=== PATIENT | female | born 2000 | race Caucasian/White ===

== ENCOUNTER → 2019-12-30 14:12 | Outpatient (BNVA) | payer MEDICAID, SELFPAY | PROVIDERS: Family Provider Family Medicine; PCP Family Medicine; Visit Provider Nurse Practitioner Psychiatric/Mental Health | DX: F43.12 Post-traumatic stress disorder, chronic (principal); F33.9 Major depressive disorder, recurrent, unspecified | CPT/HCPCS: 99214 ==

== ENCOUNTER 2020-01-09 15:36 | Emergency (ER) | payer MEDICAID, SELFPAY ==
[2020-01-09 15:50] VITALS: BP 121/81; PULSE 81; RESP 18; TEMP 37.3; O2SAT 98; BMI 31.8
[2020-01-09 15:56] VITALS: BP 110/71; PULSE 75; RESP 17; O2SAT 95
--- NOTE | 2020-01-09 16:07 | ED_ITS ---
HPI - Female Genitourinary General: Chief complaint: Urogenital-Female Stated complaint: lower abd pain Time Seen by Provider: 01/09/20 15:59 History of Present Illness: HPI Narrative: This patient is a 19-year-old female presenting with vaginal bleeding and cramping. She thinks she either is having a miscarriage or she has a ruptured ovarian cyst. She has irregular periods and has not had one in 4 months. She took a home test about a month ago and thought it might be a little bit positive. She start having some cramping last night and this morning started bleeding with clots. She otherwise feels fine. She has not been ill recently. She has had 2 normal pregnancies with no complications. MD elicited complaint: vaginal bleeding, possible miscarriage and delayed menses Quality of pain: cramping Consistency: constant Vaginal discharge: none Vaginal bleeding: dark red and clots Associated symptoms: Reports vaginal bleeding; Deny abdominal pain, headache(s) or nausea Date of Last Menstrual Period: 08/24/19 Review of Systems General: Reports: 10 or more systems reviewed and unremarkable except in HPI and below Const: Denies: fever(s), chills, fatigue or malaise Eyes: Denies: change in vision ENMT: Denies: odynophagia Card: Denies: chest pain or swelling of feet/ankles Resp: Denies: dyspnea, productive cough or non-productive cough GI: Denies: abdominal pain, nausea or vomiting : Denies: flank pain or difficulty voiding Musc: Denies: neck pain or back pain Skin/Breast: Denies: rash Neuro: Denies: headache(s), numbness in extremities or weakness in extremities Armando/Lymph: Denies: easy bruising or easy bleeding PFSH ED PFSH: Medical History Major depressive disorder, recurrent Social History Current gender identity: Female Female Reproductive History: Date of last menstrual period: 08/24/19 Physical Exam Const: COMMON NORMALS: no acute distress, patient oriented x3, no limitations and alert GENERAL APPEARANCE: cooperative and comfortable HENMT: HEAD & SCALP: normal to inspection FACE & SINUS: normal facial exam Eye: GENERAL EYE: appearance normal, both eyes and all related structures Neck/C-Spine: COMMON NORMALS: supple, no meningeal signs and no JVD Chest: COMMONS NORMALS: normal inspection of the chest Resp: COMMON NORMALS: normal respiratory effort, No use of accessory muscles and clear to auscultation bilaterally AUSCULTATION: clear to auscultation bilaterally Cardio: COMMON NORMALS: no JVD, regular rate, regular rhythm and No murmurs present (Cardio) RATE: regular rate RHYTHM: regular rhythm GI: COMMON NORMALS: Normal to inspection, nondistended, normoactive bowel sounds present, Soft to palpation and non-tender INSPECTION: Yes normal to inspection AUSCULTATION: Yes normoactive bowel sounds PALPATION: Yes Soft to palpation : COMMON NORMALS: Yes normal external appearance, Yes normal appearance of the vagina, Yes normal appearance of the cervix and Yes normal bimanual exam SPECULUM EXAM - VAGINA: Yes vaginal bleeding Amount: medium/moderate BIMANUAL EXAM - VAGINA & UTERUS: Yes normal bimanual exam OB/EXTERNAL & SPECULUM: vaginal bleeding Back/Pelvis: COMMON NORMALS: thoracic and lumbar spine normal to inspection Extremity: COMMON NORMALS: normal to inspection Neuro: COMMON NORMALS: patient oriented x3, moves all extremities, no focal motor deficits and no sensory deficits noted SENSORIUM/ORIENTATION: Yes alert MENINGEAL SIGNS: Yes no meningeal signs Psych: COMMON NORMALS: mental status grossly normal, cooperative and normal affect Skin: COMMON NORMALS: no rashes or lesions noted and turgor normal GENERAL SKIN EXAM: no rashes or lesions noted and turgor normal Course ED course: Negative hCG. Patient is pretty comfortable other than menstrual cramping. Tylenol helped. I doubt clinically an ovarian torsion. No sign of infection on pelvic exam. She does have some bleeding but not anything significant at this time. She has had irregular periods and heavy bleeding at times in the past. She does not have an WALNUT DEHYDRATOR OPERATOR or primary care provider. I offered to write her for some control to try to regulate her periods as well as give her referral to WALNUT DEHYDRATOR OPERATOR. She was interested in both of those options. We will let her go home and she understands to return if any signs of worsening anemia, increased pain, fever. Vital Signs: Vital signs: Vital Signs Temperature 99.1 F 01/09/20 15:50 Pulse Rate 74 01/09/20 19:15 Respiratory Rate 18 07/24/20 19:15 Blood Pressure 123/81 01/09/20 19:15 Pulse Oximetry 96 01/09/20 19:15 MDM - Female Lab Data: Labs: Lab Results 01/09/20 01/09/20 01/09/20 Range/Units 16:22 16:22 16:22 WBC 11.4 (4.5-13.0) 10^3/ uL RBC 5.07 (4.1-5.3) 10^6/u L Hgb 13.3 (11.5-15.3) g/dL Hct 42.3 (37.0-47.0) % MCV 83.4 (81-99) fL MCH 26.2 L (28.0-34.0) pg MCHC 31.4 (30.0-36.0) g/dL RDW 13.2 (12.1-15.1) % Plt Count 335 (130-400) 10^3/c mm MPV 9.3 (7.4-10.4) fL Neut % (Auto) 69.5 % Lymph % (Auto) 20.9 % [place] % (Auto) 7.1 % Eos % (Auto) 1.8 % Baso % (Auto) 0.4 % Neut # (Auto) 7.93 (1.8-8.0) 10^3/u L Lymph # (Auto) 2.4 (1.5-6.5) 10^3/u L [place] # (Auto) 0.8 (0.2-0.9) 10^3/u L Eos # (Auto) 0.2 (0.0-0.8) 10^3/u L Baso # (Auto) 0.0 (0.0-0.1) 10^3/u L Nucleated RBC % (a uto) 0 % Nucleated RBCs # 0.0 /100WBC Sodium 136 (136-145) mmol/L Potassium 3.9 (3.5-5.1) mmol/L Chloride 102 (98-107) mmol/L Carbon Dioxide 25 (22-29) mmol/L Anion Gap 12.9 (5-19) BUN 9 (6-20) mg/dL Creatinine 0.6 (0.5-0.9) mg/dL GFR Calculation 127.5 (90-130) mL/min Glucose 102 (65-115) mg/dL Calculated Osmolal ity 278 L (285-295) mOsm/k g Calcium 9.5 (8.5-10.5) mg/dL Total Bilirubin 0.3 (0.15-1.2) mg/dL AST 14 (0-32) U/L ALT 18 (0-33) U/L Alkaline Phosphata se 153 H (35-105) IU/L Total Protein 7.6 (6.6-8.7) g/dL Albumin 4.4 (3.5-5.2) g/dL Globulin 3.2 (1.3-4.6) g/dL HCG, Qual Negative (Negative) Blood Type Rho(D) Type Antibody Screen 01/09/20 Range/Units 16:22 WBC (4.5-13.0) 10^3/ uL RBC (4.1-5.3) 10^6/u L Hgb (11.5-15.3) g/dL Hct (37.0-47.0) % MCV (81-99) fL MCH (28.0-34.0) pg MCHC (30.0-36.0) g/dL RDW (12.1-15.1) % Plt Count (130-400) 10^3/c mm MPV (7.4-10.4) fL Neut % (Auto) % Lymph % (Auto) % [place] % (Auto) % Eos % (Auto) % Baso % (Auto) % Neut # (Auto) (1.8-8.0) 10^3/u L Lymph # (Auto) (1.5-6.5) 10^3/u L [place] # (Auto) (0.2-0.9) 10^3/u L Eos # (Auto) (0.0-0.8) 10^3/u L Baso # (Auto) (0.0-0.1) 10^3/u L Nucleated RBC % (a uto) % Nucleated RBCs # /100WBC Sodium (136-145) mmol/L Potassium (3.5-5.1) mmol/L Chloride (98-107) mmol/L Carbon Dioxide (22-29) mmol/L Anion Gap (5-19) BUN (6-20) mg/dL Creatinine (0.5-0.9) mg/dL GFR Calculation (90-130) mL/min Glucose (65-115) mg/dL Calculated Osmolal ity (285-295) mOsm/k g Calcium (8.5-10.5) mg/dL Total Bilirubin (0.15-1.2) mg/dL AST (0-32) U/L ALT (0-33) U/L Alkaline Phosphata se (35-105) IU/L Total Protein (6.6-8.7) g/dL Albumin (3.5-5.2) g/dL Globulin (1.3-4.6) g/dL HCG, Qual (Negative) Blood Type A Positive Rho(D) Type Positive Antibody Screen Negative Discharge Plan Discharge Patient Disposition: Home Clinical Impression: Dysmenorrhea Condition: Stable Prescriptions: New norethindrone-e.estradiol-iron 1-20(5)/1-30(7) /1mg-35mcg (9) tablet 1 tab PO DAILY Qty: 84 RF: 0 No Action sertraline 50 mg tablet 50 mg PO DAILY Qty: 60 RF: 0 Discharge Orders: Discharge Order (Routine); Ordered 01/09/20 Ordered By: Rashmi Jacobsen Referrals: Sagar Beard MD [Physician] - 2 weeks Discharge Diet: Usual diet Discharge Activity: Resume usual activity Patient Instructions: Menorrhagia (ED) Activity Restrictions/Additional Instructions: Return to the emergency department if bleeding worsens or continues for more than a few days. Return as well for any symptoms that would indicate significant blood loss such as chest pain, shortness of breath, lightheadedness. Follow-up with Dr. Reyes. You can start the control pills as soon as you have the prescription filled. Discharge Date/Time: 01/09/20 19:16 Coding Level of Care Code ED Agricultural Pilot for Karen Fwd Exam Comprehensive
[2020-01-09] MEDS: acetaminophen 325 mg Tablet 975 MG PO (16:26)
[2020-01-09 16:31] LABS: Basophils % 0.4 %; Eosinophils # 0.2 10^3/uL (0.0-0.8); Eosinophils % 1.8 %; Hematocrit 42.3 % (37.0-47.0); Hemoglobin 13.3 g/dL (11.5-15.3); Lymphocytes # 2.4 10^3/uL (1.5-6.5); Lymphocytes % 20.9 %; Mean Corpuscular HGB Conc 31.4 g/dL (30.0-36.0); Mean Corpuscular Hemoglobin 26.2 pg (28.0-34.0); Mean Corpuscular Volume 83.4 fL (81-99); Mean Platelet Volume 9.3 fL (7.4-10.4); Monocytes # 0.8 10^3/uL (0.2-0.9); Monocytes % 7.1 %; Neutrophils # 7.93 10^3/uL (1.8-8.0); Neutrophils % 69.5 %; Nucleated Red Blood Cells % 0 %; Platelet Count 335 10^3/cmm (130-400); Red Blood Count 5.07 10^6/uL (4.1-5.3); Red Cell Distribution Width 13.2 % (12.1-15.1); White Blood Count 11.4 10^3/uL (4.5-13.0)
[2020-01-09] MEDS: sodium chloride 0.9% 1,000 ML 999 ML IV (16:35)
[2020-01-09 16:49] LABS: Alanine Aminotransferase 18 U/L (0-33); Albumin Level 4.4 g/dL (3.5-5.2); Alkaline Phosphatase 153 IU/L (35-105); Anion Gap 12.9 (5-19); Aspartate Amino Transferase 14 U/L (0-32); Blood Urea Nitrogen 9 mg/dL (6-20); Calcium 9.5 mg/dL (8.5-10.5); Carbon Dioxide 25 mmol/L (22-29); Chloride 102 mmol/L (98-107); Creatinine Clr Calc Pharmacy 151.3444; Globulin 3.2 g/dL (1.3-4.6); Glomerular Filtration Rate 127.5 mL/min (90-130); Glucose 102 mg/dL (65-115); Osmolality Calculated 278 mOsm/kg (285-295); Potassium 3.9 mmol/L (3.5-5.1); Sodium 136 mmol/L (136-145); Total Bilirubin 0.3 mg/dL (0.15-1.2); Total Protein 7.6 g/dL (6.6-8.7)
[2020-01-09 16:54] LABS: HCG, Serum Qual Negative (Negative)
[2020-01-09 16:56] VITALS: BP 125/77; PULSE 65; RESP 17; O2SAT 96
[2020-01-09 17:36] VITALS: BP 116/70; PULSE 66; RESP 18; O2SAT 93
[2020-01-09 18:36] VITALS: BP 117/70; PULSE 67; RESP 18; O2SAT 97
[2020-01-09 19:15] VITALS: BP 123/81; PULSE 74; RESP 18; O2SAT 96
== END 2020-01-09 19:16 | disposition home or self-care (01) ==
PROVIDERS: Emergency Provider Emergency Medicine
DX: N94.6 Dysmenorrhea, unspecified (principal)
CPT/HCPCS: 12345; 36415; 80053; 84703; 85025; 86850; 86900; 87210; 87491; 87591; 87661; 96360; 99283; 99284; E0352; J7030

== ENCOUNTER → 2020-01-27 09:22 | Outpatient (BNVA) | payer MEDICAID, SELFPAY | PROVIDERS: Visit Provider Nurse Practitioner Psychiatric/Mental Health | DX: F33.9 Major depressive disorder, recurrent, unspecified (principal); F43.12 Post-traumatic stress disorder, chronic | CPT/HCPCS: G0463 ==

== ENCOUNTER → 2020-01-28 15:24 | Outpatient (BNVA) | payer MEDICAID, SELFPAY | PROVIDERS: Visit Provider Nurse Practitioner Family | DX: J02.0 Streptococcal pharyngitis (principal) | CPT/HCPCS: 87071; 87880 ==

== ENCOUNTER 2020-02-16 00:10 | Emergency (ER) | payer MEDICAID, SELFPAY ==
[2020-02-16 00:10] VITALS: BP 134/61; PULSE 94; RESP 16; TEMP 37.1; O2SAT 98; BMI 28.3
[2020-02-16 00:24] VITALS: BP 134/61; PULSE 83; RESP 16; O2SAT 98
[2020-02-16 00:31] LABS: Basophils % 0.2 %; Eosinophils # 0.2 10^3/uL (0.0-0.8); Eosinophils % 1.8 %; Hematocrit 37.6 % (37.0-47.0); Hemoglobin 11.8 g/dL (11.5-15.3); Lymphocytes # 2.8 10^3/uL (1.5-6.5); Lymphocytes % 22.2 %; Mean Corpuscular HGB Conc 31.4 g/dL (30.0-36.0); Mean Corpuscular Hemoglobin 26.4 pg (28.0-34.0); Mean Corpuscular Volume 84.1 fL (81-99); Mean Platelet Volume 9.2 fL (7.4-10.4); Monocytes # 0.9 10^3/uL (0.2-0.9); Monocytes % 6.7 %; Neutrophils # 8.78 10^3/uL (1.8-8.0); Neutrophils % 68.9 %; Nucleated Red Blood Cells % 0 %; Platelet Count 332 10^3/cmm (130-400); Red Blood Count 4.47 10^6/uL (4.1-5.3); Red Cell Distribution Width 13.7 % (12.1-15.1); White Blood Count 12.8 10^3/uL (4.5-13.0)
[2020-02-16] MEDS: sodium chloride 0.9% 1,000 ML 999 ML IV (00:34)
--- NOTE | 2020-02-16 00:34 | W.ED.FEMALGU ---
HPI - Female Genitourinary General: Chief complaint: Vaginal Bleeding Stated complaint: ABD PAIN/ VAG BLEEDING/ POSSIBLE PREG Time Seen by Provider: 02/16/20 00:16 Source: patient and EMS Mode of arrival: EMS Limitations: no limitations History of Present Illness: HPI Narrative: Patient is a 19-year-old female who presents to ED today via EMS for complaints of lower abdominal cramping and vaginal bleeding. Patient tells me she believes she might be as she took a test yesterday and it was positive. Patient states she began bleeding approximately 1.5 hours ago and has yet to soak a pad. She does have a history of ovarian cysts. If that would make patient a female. Patient states her periods are irregular but states her last menstrual cycle was 01/10. She was seen in our emergency department at that visit for almost identical symptoms that she is having today. Patient is not complaining of dysuria, frequency, urgency. She has no vaginal discharge or odor. She is not been running fevers. No new sexual partners or concern for STDs. Pertinent past history: prior miscarriages (x 1) and other (ovarian cysts) Onset (ago): hour(s) Vaginal discharge: none Vaginal bleeding: # pads per hour (reports she started bleeding 1.5 hours ago and has yet to soak a pad) Exacerbating factors: none Relieving factors: none Associated symptoms: Reports abdominal pain; Deny headache(s), nausea, vaginal bleeding or vaginal discharge Treatment prior to arrival: none Sexual activity: Yes Possible : unsure if and at home test positive Date of Last Menstrual Period: 01/11/20 Related Data: : 4 Review of Systems Const: Denies: fever(s), chills, body aches, fatigue or malaise Card: Denies: chest pain Resp: Denies: dyspnea GI: Reports: abdominal pain; Denies: nausea, vomiting, diarrhea or change in bowel habits : Reports: vaginal bleeding, irregular period and pelvic pain; Denies: flank pain, difficulty voiding, dysuria, urinary frequency, urinary urgency, hematuria, genital lesions, genital pruritis, vaginal odor or vaginal discharge Musc: Denies: neck pain or back pain Skin/Breast: Denies: rash Neuro: Denies: headache(s) PFS ED PFSH: Medical History (Updated 02/16/20 @ 02:10 by SILVIA Poe) Major depressive disorder, recurrent Social History Smoking and tobacco status: never smoked Current gender identity: Female Female Reproductive History: Date of last menstrual period: 01/11/20 : 4 Physical Exam Const: COMMON NORMALS: no acute distress, patient oriented x3, no limitations, alert and well nourished HENMT: COMMON NORMALS: normocephalic and atraumatic HEAD & SCALP: normocephalic and atraumatic Resp: COMMON NORMALS: normal respiratory effort and clear to auscultation bilaterally AUSCULTATION: clear to auscultation bilaterally Cardio: COMMON NORMALS: regular rate and regular rhythm RATE: regular rate RHYTHM: regular rhythm GI: COMMON NORMALS: Normal to inspection, nondistended, normoactive bowel sounds present, Soft to palpation, No hepatosplenomegaly present and no masses PALPATION: Yes Soft to palpation, Yes Tenderness to palpation present (GI) (mild tenderness throughout abdomen mainly throughout lower-nonsurgical exam), No Guarding due to palpation present (GI) and Yes No hepatosplenomegaly present : COMMON NORMALS: Yes no CVA tenderness, Yes normal external appearance and Yes normal bimanual exam BLADDER/KIDNEY EXAM: Yes no CVA tenderness SPECULUM EXAM - VAGINA: No vaginal bleeding, No tissue present in vagina and Yes Vaginal discharge present Vaginal discharge present: white and yellow SPECULUM EXAM - CERVIX: Yes Cervical os closed, No Cervical bleeding, No mucoid cervix and Yes Other cervical findings present (cervical erythema/inflammation ) BIMANUAL EXAM - VAGINA & UTERUS: Yes normal bimanual exam BIMANUAL EXAM - ADNEXA, OTHER: Yes normal adnexae OB/EXTERNAL & SPECULUM: no tissue noted in vagina and vaginal bleeding Back/Pelvis: COMMON NORMALS: no CVA tenderness Neuro: COMMON NORMALS: patient oriented x3 SENSORIUM/ORIENTATION: Yes alert Skin: COMMON NORMALS: no rashes or lesions noted GENERAL SKIN EXAM: no rashes or lesions noted Course Vital Signs: Vital signs: Vital Signs Temperature 98.7 F 02/16/20 00:10 Pulse Rate 90 02/16/20 02:17 Respiratory Rate 16 02/16/20 02:17 Blood Pressure 113/73 02/16/20 02:17 Pulse Oximetry 98 02/16/20 02:17 MDM - Female MDM Narrative: Medical decision making narrative: Patient's hcg today is over 2200. US confirms approximately 5 wk gestation. On exam she does have some cervical erythema/inflammation with yellow discharge. She has no cervical motion tenderness. She states she has no concern for STDs or new sexual partners. Does not want to be treated with antibiotics. Recommend she contact medical records today or tomorrow the results of her gonorrhea and chlamydia. If positive her and her partner will need to get treated. Wet prep normal today. Blood work non-concerning. UA does show some positive leukocyte esterase, WBCs, and bacteria although this is a contaminated specimen. She has no UTI symptoms. I will go ahead and culture. Lab Data: Labs: Lab Results 02/16/20 02/16/20 02/16/20 Range/Units 00:20 00:20 00:20 WBC 12.8 (4.5-13.0) 10^3/ uL RBC 4.47 (4.1-5.3) 10^6/u L Hgb 11.8 (11.5-15.3) g/dL Hct 37.6 (37.0-47.0) % MCV 84.1 (81-99) fL MCH 26.4 L (28.0-34.0) pg MCHC 31.4 (30.0-36.0) g/dL RDW 13.7 (12.1-15.1) % Plt Count 332 (130-400) 10^3/c mm MPV 9.2 (7.4-10.4) fL Neut % (Auto) 68.9 % Lymph % (Auto) 22.2 % [place] % (Auto) 6.7 % Eos % (Auto) 1.8 % Baso % (Auto) 0.2 % Neut # (Auto) 8.78 H (1.8-8.0) 10^3/u L Lymph # (Auto) 2.8 (1.5-6.5) 10^3/u L [place] # (Auto) 0.9 (0.2-0.9) 10^3/u L Eos # (Auto) 0.2 (0.0-0.8) 10^3/u L Baso # (Auto) 0.0 (0.0-0.1) 10^3/u L Nucleated RBC % (a uto) 0 % Nucleated RBCs # 0.0 /100WBC Sodium 138 (136-145) mmol/L Potassium 3.4 L (3.5-5.1) mmol/L Chloride 107 (98-107) mmol/L Carbon Dioxide 22 (22-29) mmol/L Anion Gap 12.4 (5-19) BUN 10 (6-20) mg/dL Creatinine 0.6 (0.5-0.9) mg/dL GFR Calculation 127.5 (90-130) mL/min Glucose 111 (65-115) mg/dL Calculated Osmolal ity 283 L (285-295) mOsm/k g Calcium 8.5 (8.5-10.5) mg/dL Total Bilirubin 0.2 (0.15-1.2) mg/dL AST 14 (0-32) U/L ALT 19 (0-33) U/L Alkaline Phosphata se 126 H (35-105) IU/L Total Protein 7.2 (6.6-8.7) g/dL Albumin 3.9 (3.5-5.2) g/dL Globulin 3.3 (1.3-4.6) g/dL Ser , Nicole i-Qnt 2207.00 mIU/mL Urine Color (Yellow) Urine Appearance (CLEAR) Urine pH (5-7) Ur Specific Gravit y (1.005-1.030) Urine Protein (Negative) Urine Glucose (UA) (Normal) Urine Ketones (Negative) Urine Blood (Negative) Urine Nitrate (Negative) Urine Bilirubin (NEGATIVE) Urine Urobilinogen (Negative) mg/dL Ur Leukocyte Sharon ase (Negative) Urine RBC (0-2) /hpf Urine WBC (0-5) /hpf Ur Squamous Epith Cells (0-5) Amorphous Sediment Urine Bacteria (NONE) Blood Type A Positive Rho(D) Type Positive 02/16/20 Range/Units 00:33 WBC (4.5-13.0) 10^3/ uL RBC (4.1-5.3) 10^6/u L Hgb (11.5-15.3) g/dL Hct (37.0-47.0) % MCV (81-99) fL MCH (28.0-34.0) pg MCHC (30.0-36.0) g/dL RDW (12.1-15.1) % Plt Count (130-400) 10^3/c mm MPV (7.4-10.4) fL Neut % (Auto) % Lymph % (Auto) % [place] % (Auto) % Eos % (Auto) % Baso % (Auto) % Neut # (Auto) (1.8-8.0) 10^3/u L Lymph # (Auto) (1.5-6.5) 10^3/u L [place] # (Auto) (0.2-0.9) 10^3/u L Eos # (Auto) (0.0-0.8) 10^3/u L Baso # (Auto) (0.0-0.1) 10^3/u L Nucleated RBC % (a uto) % Nucleated RBCs # /100WBC Sodium (136-145) mmol/L Potassium (3.5-5.1) mmol/L Chloride (98-107) mmol/L Carbon Dioxide (22-29) mmol/L Anion Gap (5-19) BUN (6-20) mg/dL Creatinine (0.5-0.9) mg/dL GFR Calculation (90-130) mL/min Glucose (65-115) mg/dL Calculated Osmolal ity (285-295) mOsm/k g Calcium (8.5-10.5) mg/dL Total Bilirubin (0.15-1.2) mg/dL AST (0-32) U/L ALT (0-33) U/L Alkaline Phosphata se (35-105) IU/L Total Protein (6.6-8.7) g/dL Albumin (3.5-5.2) g/dL Globulin (1.3-4.6) g/dL Ser , Nicole i-Qnt mIU/mL Urine Color Yellow (Yellow) Urine Appearance Clear (CLEAR) Urine pH 7 (5-7) Ur Specific Gravit y 1.010 (1.005-1.030) Urine Protein Neg (Negative) Urine Glucose (UA) Norm (Normal) Urine Ketones Negative (Negative) Urine Blood Neg (Negative) Urine Nitrate Negative (Negative) Urine Bilirubin Neg (NEGATIVE) Urine Urobilinogen 4 H (Negative) mg/dL Ur Leukocyte [place] ase 2+ H (Negative) Urine RBC 0-4 H (0-2) /hpf Urine WBC 5-10 H (0-5) /hpf Ur Squamous Epith Cells 10-15 H (0-5) Amorphous Sediment Not Reportable Urine Bacteria 1+ H (NONE) Blood Type Rho(D) Type Imaging Data: US OB: My impression: Per Joselito Mcguire, [id number] intrauterine Discharge Plan Discharge Patient Disposition: Home Clinical Impression: , threatened Condition: Stable Prescriptions: No Action sertraline 100 mg tablet 100 mg PO DAILY Qty: 30 RF: 1 clarithromycin 250 mg tablet 250 mg PO Q12H 10 Days Qty: 20 RF: 0 norethindrone-e.estradiol-iron 1-20(5)/1-30(7) /1mg-35mcg (9) tablet 1 tab PO DAILY Qty: 84 RF: 0 Discharge Orders: Discharge Order (Routine); Ordered 02/16/20 Ordered By: Susan Doran Patient Instructions: Threatened , Threatened Miscarriage (ED) Activity Restrictions/Additional Instructions: As discussed you need to contact medical records for the results of your pelvic swabs today. Please contact Dr. Byrnes tomorrow to schedule a follow-up visit for your . Please return to the emergency department for worsening abdominal/pelvic pain, heavy bleeding, vaginal discharge/odor, fevers, any other concerns you may have. Coding Level of Care Code ED Cytogenetics Technologist for Karen Fwd Exam Detailed
--- NOTE | 2020-02-16 00:53 | US_ITS ---
WS: [id number] EARLY OBSTETRICAL ULTRASOUND (<14 WEEKS). HISTORY: bleeding/cramping COMPARISON: None available. Transvaginal imaging is submitted. Cervix is closed. There is a single intrauterine gestational sac. No pole identified. There is a small echogenic focus which may be an early gestational sac. No cardiac activity. Mean sac diameter of 6 mm corresponds to gestation of 5 weeks and 3 days. No free fluid. Hypoechoic mass with lucent center in the cul-de-sac is labeled RIGHT ovary. This may be the RIGHT ov pascual containing a corpus luteum. No increased vascularity. US/US OB <=14 wk fetus w transvag IMPRESSION: 1. Cannot confirm intrauterine gestation. There is a probable gestational sac of 5 weeks and 3 days. 2. Hypoechoic mass with lucent center labeled RIGHT ovary. This could potentia lly be an ectopic . Only very limited imaging is submitted. 3. Recommend follow-up with serial ultrasounds and beta hCG levels. Cannot exc lude ectopic without an intrauterine gestation.
[2020-02-16 00:56] LABS: Urine Appearance Clear (CLEAR); Urine Color Yellow (Yellow)
[2020-02-16 00:57] LABS: Add Urine Microscopic? YES; Bilirubin Urine Neg (NEGATIVE); Blood Urine Neg (Negative); Glucose Urine UA Norm (Normal); Ketones Urine Negative (Negative); Leukocyte Esterase Urine 2+ (Negative); Nitrate Urine Negative (Negative); Protein Urine Neg (Negative); Urobilinogen Urine 4 mg/dL (Negative); pH Urine 7 (5-7)
[2020-02-16 00:59] LABS: Add Urine Culture? No; Bacteria Urine 1+; RBC Urine 0-4 /hpf (0-2)
[2020-02-16 01:00] LABS: Alanine Aminotransferase 19 U/L (0-33); Albumin Level 3.9 g/dL (3.5-5.2); Alkaline Phosphatase 126 IU/L (35-105); Anion Gap 12.4 (5-19); Aspartate Amino Transferase 14 U/L (0-32); Blood Urea Nitrogen 10 mg/dL (6-20); Calcium 8.5 mg/dL (8.5-10.5); Carbon Dioxide 22 mmol/L (22-29); Chloride 107 mmol/L (98-107); Globulin 3.3 g/dL (1.3-4.6); Glomerular Filtration Rate 127.5 mL/min (90-130); Glucose 111 mg/dL (65-115); Osmolality Calculated 283 mOsm/kg (285-295); Potassium 3.4 mmol/L (3.5-5.1); Sodium 138 mmol/L (136-145); Total Bilirubin 0.2 mg/dL (0.15-1.2); Total Protein 7.2 g/dL (6.6-8.7)
[2020-02-16 01:07] VITALS: BP 103/72; RESP 16
[2020-02-16 01:08] VITALS: PULSE 82; O2SAT 99
--- NOTE | 2020-02-16 01:46 | PC.NURSE ---
nurse furniture finisher ultrasound in room
[2020-02-16 01:47] VITALS: BP 117/65; RESP 17
[2020-02-16 02:17] VITALS: BP 113/73; PULSE 90; RESP 16; O2SAT 98
== END 2020-02-16 02:15 | disposition home or self-care (01) ==
PROVIDERS: Emergency Medicine; Emergency Provider Physician Assistant
DX: O20.0 Threatened abortion (principal); Z3A.01 Less than 8 weeks gestation of pregnancy
CPT/HCPCS: 12345; 76801; 76817; 80053; 81001; 84702; 85025; 86900; 87086; 87491; 87591; 96360; 99284; E0352; J7030

== ENCOUNTER 2020-03-30 11:47 | Emergency (ER) | payer MEDICAID, SELFPAY ==
--- NOTE | 2020-03-30 11:50 | US_ITS ---
WS: [id number] EARLY OBSTETRICAL ULTRASOUND (<14 WEEKS). HISTORY: vag bleeding COMPARISON: 03/03/2020 and 02/16/2020 Single intrauterine gestational sac is identified. Cardiac activity at 176 BPM. [place]-rump length sony sures 4.7 cm which corresponds to a gestation of 11w3d. Normal-appearing yolk sac and amnion demonstr ated. No subchorionic hemorrhage. No free fluid. Normal size ovaries with no mass. Cervix is closed measuring 3.5 cm. US/US OB <= 14 weeks fetus [id number] IMPRESSION: 1. Single intrauterine gestation of 11 weeks 3 days with an EDC of 10/16/2020. 2. Normal cardiac activity. 3. No complications identified by ultrasound.
[2020-03-30 12:23] VITALS: BP 125/80; PULSE 84; RESP 18; TEMP 36.8; O2SAT 99; BMI 35.9
--- NOTE | 2020-03-30 12:42 | ED_ITS ---
HPI - General: Chief complaint: Vaginal Bleeding Stated complaint: 11wks , vaginal bleeding Time Seen by Provider: 03/30/20 11:48 Source: patient Mode of arrival: ambulatory Limitations: no limitations History of Present Illness: HPI Narrative: 20-year-old female patient presents to the emergency department with complaints of vaginal bleeding. She reports was bussing a table at work when she felt cramping in her lower pelvis, went to the bathroom, visible blood when she wiped. She reports not using a tampon or a pad with bleeding. She reports cramping is stopped. Last menstrual period January 09, 2020. She is 4, para 2, Ab1. OB provider Dr. Fitz NUNEZ Complaint: vaginal bleeding Onset (ago): hour(s) (1) Pain Consistency: intermittent Location: abdomen Severity: mild Quality: Cramping Radiation: pelvis Relieving factors: none Exacerbating factors: movement Vaginal bleeding: light Date of Last Menstrual Period: 01/09/20 OB History - Current : no complications OB History - Previous Pregnancies: miscarriage (1) care: followed by OB Associated symptoms: Deny abdominal pain, dysuria, headache(s), nausea, vaginal bleeding or vomiting Review of Systems General: Reports: 10 or more systems reviewed and unremarkable except in HPI and below Const: Denies: fever(s), chills or diaphoresis Eyes: Denies: blurry vision or eye redness ENMT: Denies: throat pain, dental pain or disequilibrium Card: Denies: chest pain, palpitations or irregular heart rhythm Resp: Denies: dyspnea, productive cough, non-productive cough or wheezing GI: Denies: abdominal pain, nausea or vomiting : Reports: vaginal bleeding; Denies: flank pain, difficulty voiding, dysuria or hematuria Musc: Denies: back pain Skin/Breast: Denies: rash or pruritus Neuro: Denies: headache(s), weakness in extremities or behavioral changes Armando/Lymph: Denies: easy bruising PFSH ED PFSH: Medical History (Updated 03/30/20 @ 14:14 by GEORGE Schneider) Major depressive disorder, recurrent Social History Smoking and tobacco status: never smoked Current gender identity: Female Female Reproductive History: Date of last menstrual period: 01/09/20 Physical Exam Const: COMMON NORMALS: no acute distress, patient oriented x3, healthy appearing and alert GENERAL APPEARANCE: cooperative, comfortable and well hydrated HENMT: COMMON NORMALS: normocephalic, Normal external nose present and moist oral mucous membranes HEAD & SCALP: normocephalic NOSE: Normal external nose present Eye: COMMON NORMALS: Equal, round and reactive pupils present and EOMs intact bilaterally GENERAL EYE: appearance normal, both eyes and all related structures PUPIL: Yes Equal, round and reactive pupils present Neck/C-Spine: COMMON NORMALS: full ROM and no lymphadenopathy GENERAL: Yes normal visual inspection and Yes trachea midline CERVICAL SPINE: Yes cervical ROM normal Lymph: LYMPHATIC: no lymphadenopathy noted Chest: COMMONS NORMALS: normal inspection of the chest Resp: COMMON NORMALS: normal respiratory effort and clear to auscultation bilaterally AUSCULTATION: clear to auscultation bilaterally Cardio: COMMON NORMALS: regular rhythm, S1 normal heart sound present and S2 normal heart sound present RHYTHM: regular rhythm HEART SOUNDS: S1 normal heart sound present and S2 normal heart sound present GI: COMMON NORMALS: Soft to palpation and non-tender INSPECTION: Yes normal to inspection PALPATION: Yes Soft to palpation : COMMON NORMALS: Yes no CVA tenderness, Yes normal external appearance, Yes normal appearance of the vagina and Yes normal bimanual exam BLADDER/KIDNEY EXAM: Yes no CVA tenderness EXTERNAL FEMALE EXAM: Yes normal appearance of the urethra SPECULUM EXAM - VAGINA: No lesion, No vaginal bleeding, No tissue present in vagina and No tenderness SPECULUM EXAM - CERVIX: Yes Cervical os closed, No Tissue present in the cervical os, No Cervical bleeding and Yes Abnormal cervical discharge present (Malodorous discharge) white and malodorous BIMANUAL EXAM - VAGINA & UTERUS: Yes normal bimanual exam, Yes normal palpation, Yes normal palpation, No cervical motion tenderness, No non-tender, No Uterine tenderness and Yes enlarged OB/EXTERNAL & SPECULUM: no herpetic lesions, no tissue noted in vagina and vaginal bleeding Back/Pelvis: COMMON NORMALS: no CVA tenderness and thoracic and lumbar spine normal to inspection Extremity: COMMON NORMALS: normal to inspection and capillary refill normal Neuro: COMMON NORMALS: patient oriented x3 and no focal motor deficits SENSORIUM/ORIENTATION: Yes alert Psych: COMMON NORMALS: mental status grossly normal, Normal thought process present and cooperative ACTIVITY/MOTOR BEHAVIOR: Yes appropriate eye contact THOUGHT PROCESS: Normal thought process present Skin: COMMON NORMALS: no rashes or lesions noted and turgor normal GENERAL SKIN EXAM: no rashes or lesions noted and turgor normal Course ED course: 1-year-old female patient presents to the emergency department with complaint of vaginal bleeding. Approximately 11 weeks with last menstrual period 01/11/2020, pelvic exam did not reveal bleeding, pelvic ultrasound revealed single uterine of 11 weeks and 3 days with estimated date of delivery 10/16/2020. Normal cardiac activity noted. Cervix was closed during pelvic exam. Gram stain pending, genital culture pending. STD analysis pending, wet prep with many bacteria with many white blood cells, treated for STI today. Advised to follow-up with her HYGIENE ASSISTANT and to avoid sexual intercourse until she is cleared. She was also placed on 10 pound weight limit due to complaints of pelvic cramping and bleeding, she denied pain during stay here in the ED today. Discussed with patient need to return to emergency department if she develops vaginal bleeding saturating a pad, worsening lower pelvic pain or other concerning symptoms such as lightheadedness or dizziness. Verbalized understanding and agrees to follow-up with her HYGIENE ASSISTANT as scheduled Vital Signs: Vital signs: Vital Signs Temperature 98.2 F 03/30/20 12:23 Pulse Rate 80 03/30/20 14:36 Respiratory Rate 16 03/30/20 14:36 Blood Pressure 116/78 03/30/20 14:36 Pulse Oximetry 99 03/30/20 14:36 MDM - OB/Uterine Contractions Lab Data: Labs: Lab Results 03/30/20 03/30/20 03/30/20 Range/Units 12:59 12:59 13:14 WBC 9.7 (4.0-10.0) 10^3/ uL RBC 4.61 (4.1-5.3) 10^6/u L Hgb 12.4 (11.5-15.3) g/dL Hct 39.1 (37.0-47.0) % MCV 84.8 (81-99) fL MCH 26.9 L (28.0-34.0) pg MCHC 31.7 (30.0-36.0) g/dL RDW 13.4 (12.1-15.1) % Plt Count 265 (130-400) 10^3/c mm MPV 9.9 (7.4-10.4) fL Neut % (Auto) 70.8 % Lymph % (Auto) 21.1 % [place] % (Auto) 5.9 % Eos % (Auto) 1.5 % Baso % (Auto) 0.3 % Neut # (Auto) 6.83 (1.8-7.7) 10^3/u L Lymph # (Auto) 2.0 (0.8-4.8) 10^3/u L [place] # (Auto) 0.6 (0.2-0.9) 10^3/u L Eos # (Auto) 0.1 (0.0-0.8) 10^3/u L Baso # (Auto) 0.0 (0.0-0.1) 10^3/u L Nucleated RBC % (a uto) 0 % Nucleated RBCs # 0.0 /100WBC Sodium 136 (136-145) mmol/L Potassium 3.7 (3.5-5.1) mmol/L Chloride 101 (98-107) mmol/L Carbon Dioxide 22 (22-29) mmol/L Anion Gap 16.7 (5-19) BUN 6 (6-20) mg/dL Creatinine 0.5 (0.5-0.9) mg/dL GFR Calculation 155.7 H (90-130) mL/min Glucose 86 (65-115) mg/dL Calculated Osmolal ity 279 L (285-295) mOsm/k g Calcium 9.3 (8.5-10.5) mg/dL Total Bilirubin 0.2 (0.15-1.2) mg/dL AST 13 (0-32) U/L ALT 15 (0-33) U/L Alkaline Phosphata se 90 (35-105) IU/L Total Protein 7.1 (6.6-8.7) g/dL Albumin 3.9 (3.5-5.2) g/dL Globulin 3.2 (1.3-4.6) g/dL Ser , [place] [address].00 mIU/mL Urine Color Yellow (Yellow) Urine Appearance Clear (CLEAR) Urine pH 5.0 (5-7) Ur Specific Gravit y 1.020 (1.005-1.030) Urine Protein Neg (Negative) Urine Glucose (UA) Norm (Normal) Urine Ketones Negative (Negative) Urine Blood Neg (Negative) Urine Nitrate Negative (Negative) Urine Bilirubin Neg (Negative) Urine Urobilinogen Norm (Negative) mg/dL Ur Leukocyte Sharon ase Negative (Negative) Imaging Data^: US OB: Radiologist's impression: [facility] [address] [place] [address] Ultrasound Report Signed Patient: Salina Hirsch #: [id number] : 2000Acct#:[id number] Age/Sex: 20 / FADM Date: 03/30/20 Loc: ERRoom/Bed: Attending Dr: Ordering Provider/Ordering MD: Marbella Bradford Date of Service: 03/30/20 Procedure(s): US OB <= 14 weeks fetus [id number] Accession Number(s): [id number] Report Number: [id number] WS: [id number] EARLY OBSTETRICAL ULTRASOUND (<14 WEEKS). HISTORY: vag bleeding COMPARISON: 03/03/2020 and 02/16/2020 Single intrauterine gestational sac is identified. Cardiac activity at 176 BPM. [place]-rump length measures 4.7 cm which corresponds to a gestation of 11w3d. Normal-appearing yolk sac and amnion demonstrated. No subchorionic hemorrhage. No free fluid. Normal size ovaries with no mass. Cervix is closed measuring 3.5 cm. US/US OB <= 14 weeks fetus [id number] IMPRESSION: 1. Single intrauterine gestation of 11 weeks 3 days with an EDC of 10/16/2020. 2. Normal cardiac activity. 3. No complications identified by ultrasound. Dictated By:Mehreen Vieira DO Signed By:Mehreen Vieira DOSigned Date/Time:03/30/20 1237 DD/ 1233 Discharge Plan Discharge Patient Disposition: Home Clinical Impression: Threatened , Vaginal bleeding in Condition: Stable Prescriptions: Discontinued clarithromycin 250 mg tablet 250 mg PO Q12H 10 Days Qty: 20 RF: 0 No Action sertraline 100 mg tablet 100 mg PO DAILY Qty: 30 RF: 1 norethindrone-e.estradiol-iron 1-20(5)/1-30(7) /1mg-35mcg (9) tablet 1 tab PO DAILY Qty: 84 RF: 0 Discharge Orders: Discharge Order (Routine); Ordered 03/30/20 Ordered By: Marbella Bradford Referrals: [facility], [Primary Care Provider] - Discharge Diet: Usual diet Discharge Activity: Limit activity as instructed Patient Instructions: Threatened Miscarriage (ED), Abdominal Pain in (ED) Activity Restrictions/Additional Instructions: Avoid sexual intercourse until follow-up with your HYGIENE ASSISTANT Return to the emergency department if you develop vaginal bleeding, worsening abdominal pain, fever Continue vitamins Continue follow-up with routine exams Avoid heavy lifting greater than 10 pounds until released by her HYGIENE ASSISTANT Stand Alone Forms: Work/School Release Discharge Date/Time: 03/30/20 14:36 Coding Level of Care Code ED Furniture Finisher Apprentice for Chg Fwd Exam Comprehensive
[2020-03-30 13:23] LABS: Add Urine Microscopic? NO
[2020-03-30 13:23] LABS: Basophils % 0.3 %; Eosinophils # 0.1 10^3/uL (0.0-0.8); Eosinophils % 1.5 %; Hematocrit 39.1 % (37.0-47.0); Hemoglobin 12.4 g/dL (11.5-15.3); Lymphocytes % 21.1 %; Mean Corpuscular HGB Conc 31.7 g/dL (30.0-36.0); Mean Corpuscular Hemoglobin 26.9 pg (28.0-34.0); Mean Corpuscular Volume 84.8 fL (81-99); Mean Platelet Volume 9.9 fL (7.4-10.4); Monocytes # 0.6 10^3/uL (0.2-0.9); Monocytes % 5.9 %; Neutrophils # 6.83 10^3/uL (1.8-7.7); Neutrophils % 70.8 %; Nucleated Red Blood Cells % 0 %; Platelet Count 265 10^3/cmm (130-400); Red Blood Count 4.61 10^6/uL (4.1-5.3); Red Cell Distribution Width 13.4 % (12.1-15.1); White Blood Count 9.7 10^3/uL (4.0-10.0)
[2020-03-30 13:30] LABS: Bilirubin Urine Neg (Negative); Blood Urine Neg (Negative); Glucose Urine UA Norm (Normal); Ketones Urine Negative (Negative); Leukocyte Esterase Urine Negative (Negative); Nitrate Urine Negative (Negative); Protein Urine Neg (Negative); Urine Appearance Clear (CLEAR); Urine Color Yellow (Yellow); Urobilinogen Urine Norm (Negative)
[2020-03-30 13:50] LABS: Alanine Aminotransferase 15 U/L (0-33); Albumin Level 3.9 g/dL (3.5-5.2); Alkaline Phosphatase 90 IU/L (35-105); Anion Gap 16.7 (5-19); Aspartate Amino Transferase 13 U/L (0-32); Blood Urea Nitrogen 6 mg/dL (6-20); Calcium 9.3 mg/dL (8.5-10.5); Carbon Dioxide 22 mmol/L (22-29); Chloride 101 mmol/L (98-107); Globulin 3.2 g/dL (1.3-4.6); Glomerular Filtration Rate 155.7 mL/min (90-130); Glucose 86 mg/dL (65-115); Osmolality Calculated 279 mOsm/kg (285-295); Potassium 3.7 mmol/L (3.5-5.1); Sodium 136 mmol/L (136-145); Total Bilirubin 0.2 mg/dL (0.15-1.2); Total Protein 7.1 g/dL (6.6-8.7)
[2020-03-30] MEDS: azithromycin 250 mg Tablet 1000 MG PO (14:32)
[2020-03-30] MEDS: cefTRIAXone 1,000 mg SDV 1000 MG IM (14:32)
[2020-03-30 14:36] VITALS: BP 116/78; PULSE 80; RESP 16; O2SAT 99
== END 2020-03-30 14:36 | disposition home or self-care (01) ==
PROVIDERS: Emergency Provider Nurse Practitioner Family
DX: O20.0 Threatened abortion (principal); Z3A.11 11 weeks gestation of pregnancy
CPT/HCPCS: 12345; 76801; 80053; 81003; 84702; 85025; 87070; 87205; 87210; 87491; 87591; 87661; 96372; 99284; J0696; Q0144

== ENCOUNTER 2020-06-28 21:20 | Outpatient (CLI) | payer BC, MEDICAID, SELFPAY ==
[2020-06-28 21:23] VITALS: BP 132/72; PULSE 115; TEMP 37
[2020-06-28 21:32] VITALS: BMI 36.8
[2020-06-28 21:46] VITALS: RESP 17
[2020-06-28 22:07] LABS: Urine Appearance Cloudy (CLEAR); Urine Color Straw (Yellow)
[2020-06-28 22:08] LABS: Add Urine Microscopic? YES; Bilirubin Urine Neg (Negative); Blood Urine Neg (Negative); Glucose Urine UA Trace (Normal); Ketones Urine Negative (Negative); Leukocyte Esterase Urine Negative (Negative); Nitrate Urine Negative (Negative); Protein Urine Neg (Negative); Specific Gravity, Urine 1.015 (1.005-1.030); Sulfosalicylic Acid Urine Negative (Negative); Urobilinogen Urine Norm (Negative); pH Urine 8 (5-7)
[2020-06-28 22:13] LABS: Amorphous Sediment Urine AMORPHOUS URATES /hpf; Bacteria Urine 3+ /hpf; RBC Urine 0-4 /hpf (0-2); WBC Urine 0-4 /hpf (0-5)
[2020-06-28 22:14] LABS: Add Urine Culture? No
[2020-06-28 22:22] VITALS: BP 137/72; PULSE 115; RESP 17; TEMP 36.8
== END 2020-06-28 22:33 | disposition home or self-care (01) ==
LOC: OPOB 21:20 → OBGYN 21:21
PROVIDERS: Visit Provider Family Medicine
DX: O26.899 Other specified pregnancy related conditions, unspecified trimester (principal); Z3A.00 Weeks of gestation of pregnancy not specified; R10.2 Pelvic and perineal pain
CPT/HCPCS: 81001; 99211

== ENCOUNTER 2020-07-15 13:05 | Outpatient (CLI) | payer BC, MEDICAID, SELFPAY ==
[2020-07-15] VITALS (8 sets, daily range): BP systolic 106–115; BP diastolic 57–67; PULSE 89–100; TEMP 36.4; BMI 36.1
[2020-07-15 14:38] LABS: Bacteria Urine TRACE /hpf; Bilirubin Urine Neg (Negative); Blood Urine Neg (Negative); Glucose Urine UA Norm (Normal); Ketones Urine 1+ (Negative); Leukocyte Esterase Urine Negative (Negative); Nitrate Urine Negative (Negative); Protein Urine Neg (Negative); RBC Urine 0-4 /hpf (0-2); Specific Gravity, Urine 1.015 (1.005-1.030); Squamous Epithelial Cell Urine 0-4 /hpf (0-5); Urine Appearance Clear (CLEAR); Urine Color Yellow (Yellow); Urobilinogen Urine Norm (Negative); WBC Urine 0-4 /hpf (0-5); pH Urine 5 (5-7)
== END 2020-07-15 15:07 | disposition home or self-care (01) ==
LOC: OPOB 13:09 → OBGYN 13:10
PROVIDERS: Visit Provider Family Medicine
DX: O26.899 Other specified pregnancy related conditions, unspecified trimester (principal); Z3A.00 Weeks of gestation of pregnancy not specified; R10.9 Unspecified abdominal pain; M54.9 Dorsalgia, unspecified; R10.2 Pelvic and perineal pain
CPT/HCPCS: 81001; 99211

== ENCOUNTER 2020-08-14 19:25 | Outpatient (CLI) | payer BC, MEDICAID, SELFPAY ==
[2020-08-14 19:39] VITALS: BP 120/65; PULSE 103; TEMP 36.5
[2020-08-14 20:02] VITALS: BMI 37.7
[2020-08-14 20:02] LABS: Nitrazine Paper, PH Negative
[2020-08-14 20:26] LABS: Bilirubin Urine Neg (Negative); Blood Urine Neg (Negative); Glucose Urine UA Norm (Normal); Ketones Urine Negative (Negative); Leukocyte Esterase Urine 1+ (Negative); Nitrate Urine Negative (Negative); Protein Urine Neg (Negative); Urine Appearance Clear (CLEAR); Urine Color Yellow (Yellow); Urobilinogen Urine Norm (Negative); pH Urine 7 (5-7)
[2020-08-14 20:27] LABS: Add Urine Culture? No; Amorphous Sediment Urine 2+ /hpf; Bacteria Urine 1+ /hpf; Fine Granular Casts Urine 0-4 /lpf; RBC Urine 0-4 /hpf (0-2); Squamous Epithelial Cell Urine 15-25 /hpf (0-5)
[2020-08-14 21:27] VITALS: RESP 18
== END 2020-08-14 20:45 | disposition home or self-care (01) ==
LOC: OPOB 19:35 → OBGYN 20:38
PROVIDERS: Visit Provider Family Medicine
DX: O26.899 Other specified pregnancy related conditions, unspecified trimester (principal); Z3A.00 Weeks of gestation of pregnancy not specified; R10.9 Unspecified abdominal pain
CPT/HCPCS: 59025; 81001; 83986; 99211

== ENCOUNTER 2020-08-24 19:27 | Outpatient (CLI) | payer BC, MEDICAID, SELFPAY ==
[2020-08-24 19:40] VITALS: BMI 37.5
[2020-08-24 19:46] VITALS: BP 118/67; PULSE 104; TEMP 36.3
[2020-08-24 20:39] VITALS: BP 111/62; PULSE 100
[2020-08-24 20:42] VITALS: RESP 18
== END 2020-08-24 21:05 | disposition home or self-care (01) ==
LOC: OPOB 19:28 → OBGYN 19:31
PROVIDERS: Visit Provider Family Medicine
DX: O26.899 Other specified pregnancy related conditions, unspecified trimester (principal); Z3A.00 Weeks of gestation of pregnancy not specified; R10.9 Unspecified abdominal pain
CPT/HCPCS: 99211

== ENCOUNTER 2020-09-20 21:00 | Outpatient (CLI) | payer BC, MEDICAID, SELFPAY ==
[2020-09-20 21:13] VITALS: BP 127/66; PULSE 102; TEMP 36.6
[2020-09-20 22:26] VITALS: RESP 18
[2020-09-20 22:28] VITALS: BMI 39.4
[2020-09-20 23:02] LABS: Glucose Urine UA Norm (Normal); Protein Urine Neg (Negative); Specific Gravity, Urine 1.025 (1.005-1.030); Urine Appearance Clear (CLEAR); Urine Color Yellow (Yellow); pH Urine 5 (5-7)
[2020-09-20 23:03] LABS: Bilirubin Urine Neg (Negative); Blood Urine Neg (Negative); Ketones Urine Negative (Negative); Leukocyte Esterase Urine Negative (Negative); Nitrate Urine Negative (Negative); Urobilinogen Urine 1 mg/dL (Negative)
[2020-09-20 23:04] LABS: Add Urine Culture? No; Amorphous Sediment Urine 1+ /hpf; Bacteria Urine 1+ /hpf; RBC Urine 0-4 /hpf (0-2); Squamous Epithelial Cell Urine 0-4 /hpf (0-5)
[2020-09-20 23:47] VITALS: BP 118/69; PULSE 80; TEMP 36.3
== END 2020-09-20 23:56 | disposition home or self-care (01) ==
LOC: OPOB 21:05 → OBGYN 21:06
PROVIDERS: Visit Provider Family Medicine
DX: O26.899 Other specified pregnancy related conditions, unspecified trimester (principal); Z3A.00 Weeks of gestation of pregnancy not specified; R10.2 Pelvic and perineal pain
CPT/HCPCS: 59025; 81001; 99211

== ENCOUNTER 2020-09-24 20:51 | Outpatient (CLI) | payer BC, MEDICAID, SELFPAY ==
[2020-09-24 21:01] VITALS: BP 127/73; PULSE 112; TEMP 36.3
[2020-09-24 21:07] VITALS: RESP 16
[2020-09-24 21:11] VITALS: BMI 39.3
[2020-09-24 21:31] VITALS: TEMP 36.4
[2020-09-24 21:32] VITALS: BP 112/64; PULSE 84
[2020-09-24 21:45] LABS: Bilirubin Urine Neg (Negative); Blood Urine Neg (Negative); Glucose Urine UA 2+ (Normal); Ketones Urine Negative (Negative); Leukocyte Esterase Urine Negative (Negative); Nitrate Urine Negative (Negative); Protein Urine Neg (Negative); Urine Appearance Clear (CLEAR); Urine Color Yellow (Yellow); Urobilinogen Urine 1 mg/dL (Negative); pH Urine 6.5 (5-7)
[2020-09-24 22:14] LABS: Bacteria Urine 2+ /hpf; Mucus Urine 1+ /hpf; RBC Urine 0-4 /hpf (0-2)
== END 2020-09-24 21:37 | disposition home or self-care (01) ==
LOC: OPOB 20:52 → OBGYN 21:30
PROVIDERS: Visit Provider Family Medicine
DX: O26.899 Other specified pregnancy related conditions, unspecified trimester (principal); Z3A.00 Weeks of gestation of pregnancy not specified; R10.9 Unspecified abdominal pain
CPT/HCPCS: 81001; 99211

== ENCOUNTER 2020-09-28 15:49 | Outpatient (CLI) | payer BC, MEDICAID, SELFPAY ==
[2020-09-28 15:56] VITALS: BP 134/82; PULSE 117
[2020-09-28 16:02] VITALS: BMI 39.4
[2020-09-28 17:04] VITALS: BP 114/80; PULSE 112
[2020-09-28] MEDS: fluconazole 100 mg Tablet 150 MG PO (17:11)
[2020-09-28] MEDS: miconazole 2% vaginal cream 45 gm 1 APPFUL VAGINAL (17:11)
--- NOTE | 2020-09-28 21:10 | ANES.PREANE2 ---
Pre-Anesthetic Assessment Pre-Anesthetic Assessment: Height/Weight: Height 1.6 m Weight 101.151 kg Pulse BP 112 H 114/80 09/28/20 17:04 09/28/20 17:04 Preop Diagnosis: IUP Was Beta Timbo taken within 24 hours: N/A Was Clonidine taken within 24 hours: N/A Social: Social History: No alcohol and No tobacco Exam: Pre-Anes Outpt Exam: alert, oriented x 3, clear to auscultation bilaterally and regular rate & rhythm Airway: Submandibular: WNL Cervical ROM: WNL MP: 2 Dentition: Chipped History/ROS: No significant history except as noted Pulmonary: Pulmonary: Asthma CV/HEM: CV/HEM: None reported : Comments: born with 1 kidney Hepatic: Hepatic: None reported GI: GI: None reported Metabolic: Metabolic: None reported Musc/skel: Musc/skel: None reported Neuropsych: Neuropsych: Depression Anesthetic Plan: ASA status: 1 Anesthesia: Anesthesia Evaluation Risk of > 500 ml blood loss (7ml/kg in children): No PFSH Anesthesia PFSH: Medical History (Updated 04/07/20 @ 00:01 by ) Major depressive disorder, recurrent Social History (Updated 06/15/20 @ 13:29 by Bernabe Santacruz LPN) Smoking and tobacco status: never smoked Alcohol intake: never Current gender identity: Female Female Reproductive History: Date of last menstrual period: 01/09/20 : 3 Data Anesthesia Cardiac Studies: No Data to Display
--- NOTE | 2020-09-28 21:42 | ANES.PROC ---
Anesthesia Procedures Procedure/Date: 09/28/20 Epidural: Time Out Performed: Yes Consents Signed: Procedure Consent Consent: requested by attending/covering physician Lumbar Level: L3-L4 Epidural position: sitting Epidural procedure: sterile prep of area, 1% lidocaine to numb the area, 18 g needle, negative for paresthesia passed, neg for paresthesia, test dose given, 1.5% xylocaine 1:200k epi (5), 0.2% Ropivacaine bolus ml (5), placed PCEA, no systemic response, sterile dressing applied, L.U.D. no apparent complications and 0.2% Ropiavacaine @ mls/hr (13)
[2020-09-29] VITALS (14 sets, daily range): BP systolic 97–127; BP diastolic 46–80; PULSE 96–113; RESP 16; TEMP 36.4
[2020-09-30 10:20] VITALS: BP 128/76; PULSE 83
[2020-10-01 08:06] VITALS: BP 116/62; PULSE 67
== END 2020-09-28 17:22 | disposition home or self-care (01) ==
LOC: OPOB 15:50 → OBGYN 17:14
PROVIDERS: Visit Provider Family Medicine
DX: O26.899 Other specified pregnancy related conditions, unspecified trimester (principal); Z3A.00 Weeks of gestation of pregnancy not specified; R10.9 Unspecified abdominal pain
CPT/HCPCS: 59025; 99211

== ENCOUNTER 2020-09-28 19:49 | Inpatient (IN) | payer BC, MEDICAID, SELFPAY ==
[2020-09-28] VITALS (27 sets, daily range): BP systolic 93–141; BP diastolic 51–89; PULSE 107–137; RESP 17–20; TEMP 36.2–36.7; O2SAT 96–100; BMI 39.3
[2020-09-28 20:14] LABS: Basophils # 0.1 10^3/uL (0.0-0.1); Basophils % 0.2 %; Hematocrit 35.3 % (37.0-47.0); Hemoglobin 11.6 g/dL (11.5-15.3); Lymphocytes # 1.3 10^3/uL (0.8-4.8); Lymphocytes % 5.9 %; Mean Corpuscular HGB Conc 32.9 g/dL (30.0-36.0); Mean Corpuscular Volume 85.3 fL (81-99); Mean Platelet Volume 10.3 fL (7.4-10.4); Monocytes % 4.5 %; Neutrophils # 19.05 10^3/uL (1.8-7.7); Neutrophils % 88.8 %; Nucleated Red Blood Cells % 0 %; Platelet Count 255 10^3/cmm (130-400); Red Blood Count 4.14 10^6/uL (4.1-5.3); Red Cell Distribution Width 13.4 % (12.1-15.1); White Blood Count 21.5 10^3/uL (4.0-10.0)
[2020-09-28] MEDS: ampicillin 2,000 MG in sodium chloride 0.9% (plus) 50 ML 100 MG IV (20:20)
[2020-09-28] MEDS: lactated ringers 1,000 ML 999 ML IV ×2 (20:20→23:13)
[2020-09-28] MEDS: fentaNYL 50 mcg/mL INJ 2mL IVP (20:36)
--- NOTE | 2020-09-28 20:37 | PC.NURSE ---
25 mcg Fentanyl given IVP by this casualty underwriter with Ngoc Keller, RN; medication scanned and was entered however, it was overridden by this RN due to pharmacist stating he was busy and could not verify order. Order and dosage ordered RBTO by Dr. Byrnes and was verified by this RN and Ngoc Keller, RN prior to pulling out of pyxis and scanning for administration. Patient is in a lot of pain and is waiting for her IV fluid bolus to be complete to receive epidural and was requesting IV pain medication.
[2020-09-28] MEDS: dextrose 5%-lactated ringers 1,000 ML 125 ML IV (21:25)
--- NOTE | 2020-09-28 22:57 | PC.NURSE ---
Patient had allergies reviewed upon arrival, when allergy band was placed on right wrist and again with Time Out before epidural procedure. Patient repeatedly reported prednisone, watermelon and nut as her only allergies. When discussed placing sanchez catheter after epidural patient asked, Is that a latex free catheter? Advised patient is was not and asked if needed a latex free catheter. Patient states, I'd rather not have a rash. Asked patient if she has an allergy to latex and she reports, It doesn't always happen but when it does it's a bad rash and I would rather not have one. Obtained latex free sanchez catheter for patient, changes patient's allergy band and updated patient allergy list in EHR. Advised patient to include latex in list of allergies in the future.
[2020-09-29] VITALS (30 sets, daily range): BP systolic 87–135; BP diastolic 44–80; PULSE 96–136; RESP 16–18; TEMP 36.4–38.3
[2020-09-29] MEDS: ampicillin 1,000 MG in sodium chloride 0.9% (plus) 50 ML 100 MG IV ×2 (00:22→03:41)
[2020-09-29] MEDS: oxytocin 30 UNIT/500 ML BAG 600 UNIT IV (03:59)
--- NOTE | 2020-09-29 04:11 | PM.DELIVERY ---
Delivery Note: Date of delivery: September 29, 2020 this 20-year-old 4 now para 3 female at 37-1/2 weeks gestation had spontaneous onset of labor at home. She had been in and out of the OB department with the last couple weeks with having contractions off and on. She was seen in the OB department earlier yesterday with contractions but no cervical change. She did return a couple hours later having contractions and making cervical change. She received epidural anesthesia and her pain level greatly decreased but she did not make much further change for a few hours. She finally had spontaneous rupture membranes with moderate clear fluid obtained and delivered by spontaneous vaginal livery at 03 54 a healthy, viable male infant. Infant cried well at but did have some grunting and the patient was brought to the warmer and the lead with approximately 5 mL of clear fluid suctioned. has done well since then. His Apgars were 9 and 9 at 1 and 5 minutes effectively and he weighed 7 pounds 13 ounces. There was a nuchal cord x1 which was unable to be unwrapped, however we were able to delivery the baby through the cord without problems. At delivery, the mouth and nose were suctioned followed by placing the infant on the mother's abdomen. After approximately 1 minute, the father cut the umbilical cord. The cord had 3 blood vessels. There were no lacerations and no episiotomy. As stated above epidural anesthesia was used for the procedure. There were no complications with estimated blood loss approximately 98 mL. Pre-Delivery Course: This patient is followed by this physician throughout her course. Maternal blood type was A+ with antibody screen negative. Hepatitis B, hepatitis C, RPR and HIV were negative. Rubella was nonimmune and group B strep was positive. Covid testing was not done as she was early. Delivery: Spontaneous vaginal delivery Post-Delivery Status: Patient is doing well at this time with no significant bleeding. She will plan to be followed with routine postdelivery care. A&P Assessment and plan (1) Normal spontaneous vaginal delivery: Patient is doing well at this time and will be followed for routine postdelivery care. We will adjust orders as necessary. Status: Acute Coding Level of Care Code Acute Saturator Tender for Karen Fwserafin Diagnoses Normal spontaneous vaginal delivery O80
[2020-09-29] MEDS: docusate sodium 100 mg Capsule PO ×2 (09:21→17:26)
[2020-09-29] MEDS: prenatal vitamin Capsule 1 CAP PO (09:21)
[2020-09-29] MEDS: ibuprofen 800 mg tablet PO ×3 (09:21→22:13)
[2020-09-29] MEDS: benzocaine-menthol 78 gm Canister 1 SPRAY TOPICAL (09:22)
[2020-09-29 16:15] LABS: Hematocrit 31.6 % (37.0-47.0); Hemoglobin 10.2 g/dL (11.5-15.3); Mean Corpuscular HGB Conc 32.3 g/dL (30.0-36.0); Mean Corpuscular Hemoglobin 27.7 pg (28.0-34.0); Mean Corpuscular Volume 85.9 fL (81-99); Mean Platelet Volume 10.3 fL (7.4-10.4); Platelet Count 256 10^3/cmm (130-400); Red Blood Count 3.68 10^6/uL (4.1-5.3); Red Cell Distribution Width 13.6 % (12.1-15.1); White Blood Count 21.9 10^3/uL (4.0-10.0)
[2020-09-29] MEDS: HYDROcodone-acetaminophen 5-325 mg Tablet PO (17:26)
[2020-09-30 04:56] VITALS: BP 114/66; PULSE 83; RESP 16; TEMP 36.8
[2020-09-30] MEDS: HYDROcodone-acetaminophen 5-325 mg Tablet PO (07:23)
--- NOTE | 2020-09-30 09:59 | P.DS_ITS ---
Discharge Providers REVENUE CYCLE MANAGER Date of Admission: 09/28/20 19:49 Date of Discharge: 09/30/20 Attending Provider at Admission: Tho Byrnes MD Attending Provider at Discharge: Tho Byrnes MD Diagnoses at Discharge Discharge Diagnosis (1) Normal spontaneous vaginal delivery: Status: Acute Reason for Visit Reason for Visit: pressure Information Peripartum Data: Delivery Method: Vaginal Physical Exam Narrative: EXAM NARRATIVE: Patient is doing well with just mild lochia. She is ambulating well and tolerating a regular diet and is felt to be stable for discharge home. Const: COMMON NORMALS: no acute distress, healthy appearing and well nourished Resp: COMMON NORMALS: normal respiratory effort, No retractions, No use of accessory muscles and clear to auscultation bilaterally AUSCULTATION: clear to auscultation bilaterally Cardio: COMMON NORMALS: regular rate, regular rhythm and No murmurs present (Cardio) RATE: regular rate RHYTHM: regular rhythm GI: COMMON NORMALS: Normal to inspection, nondistended, normoactive bowel sounds present, Soft to palpation, non-tender and no masses (Fundus is firm.) PALPATION: Yes Soft to palpation Extremity: COMMON NORMALS: full ROM and capillary refill normal; negative for no pedal edema (She has trace to 1+ pedal edema.) Neuro: COMMON NORMALS: moves all extremities, no focal motor deficits and no sensory deficits noted Psych: COMMON NORMALS: mental status grossly normal, Normal thought process present, cooperative and normal affect THOUGHT PROCESS: Normal thought process present Skin: COMMON NORMALS: no rashes or lesions noted GENERAL SKIN EXAM: no rashes or lesions noted Urinary Catheter Management^: Andre Latex Free: Cath Placed During This Visit: yes, but has since been removed by the nurse Reason for Continuing Indwelling Catheter: Other Urinary Catheter Date of Insertion: 09/28/20 Urinary Catheter Time of Insertion: 21:50 Date Urinary Catheter Removed: 09/29/20 Time Urinary Catheter Discontinued: 03:46 Discharge Data Data Completed and Pending: Labs from last 24 hours 09/29/20 16:05 WBC 21.9 H RBC 3.68 L Hgb 10.2 L Hct 31.6 L MCV 85.9 MCH 27.7 L MCHC 32.3 RDW 13.6 Plt Count 256 MPV 10.3 Vitals: Last Vital Signs Temp 98.3 F 09/30/20 04:56 Pulse 83 09/30/20 04:56 Resp 16 09/30/20 04:56 BP 114/66 09/30/20 04:56 Pulse Ox 96 09/28/20 21:52 Discharge Plan Discharge Patient Disposition: Home Condition: Stable Prescriptions: New docusate sodium [DOK] 100 mg Capsule 100 mg PO BID Qty: 60 RF: 1 ibuprofen 800 mg Tablet 800 mg PO TID Qty: 90 RF: 1 Continued 1 mg Tablet 1 tab PO DAILY RF: 0 Discharge Orders: Discharge Order (Routine); Ordered 09/30/20 Ordered By: Tho Byrnes Referrals: Tho Byrnes MD [Physician] - 11/12/20 1:45 pm (Your appointment is on 11/12/20 at 1:45 pm.) Discharge Diet: Usual diet Discharge Activity: Resume usual activity Patient Instructions: Vaginal Delivery (DC), Pre-eclampsia and Eclampsia (DC), Bleeding (DC), OB Discharge Report, OB Food/Drug Interaction Guide, Opioid Safety, OB Home Care, OB Proud Parent Packet Discharge Attestations REVENUE CYCLE MANAGER Time Spent in Discharge Care*: less than 30 min Specific Discharge Activities: Specific discharge activities: educating patient, documenting/other paperwork and evaluating patient/reviewing data Coding Level of Care Code Acute Milk Tester for Chg Fwd Diagnoses Normal spontaneous vaginal delivery O80
[2020-09-30] MEDS: docusate sodium 100 mg Capsule PO (10:17)
[2020-09-30] MEDS: ibuprofen 800 mg tablet PO (10:17)
[2020-09-30] MEDS: prenatal vitamin Capsule 1 CAP PO (10:17)
[2020-09-30] MEDS: measles,mumps,rubella pf Vial (w/diluent) 0.5 ML SUBCUT (10:53)
[2020-09-30 11:00] VITALS: BP 114/66; PULSE 83; RESP 16; TEMP 36.8
--- NOTE | 2020-09-30 11:39 | PC.NURSE ---
pt states she changed her mind and no longer wants the pneumococcal vaccine
== END 2020-09-30 11:20 | disposition home or self-care (01) | DRG 807 ==
LOC: OPOB 19:54 → OBGYN 19:56 → OPOB 20:05 → OBGYN 20:05
PROVIDERS: Admitting Provider Family Medicine; Visit Provider Family Medicine
DX: O69.2XX0 Labor and delivery complicated by other cord entanglement, with compression, not applicable or unspecified (principal); Z37.0 Single live birth; O99.824 Streptococcus B carrier state complicating childbirth; Z3A.37 37 weeks gestation of pregnancy
CPT/HCPCS: 36415; 51702; 59409; 85025; 85027; 90707; 96372; 99211; J0290; J2795; J3010

== ENCOUNTER 2021-01-26 12:38 | Emergency (ER) | payer BC, MEDICAID, SELFPAY ==
[2021-01-26 13:08] VITALS: BP 121/81; PULSE 82; RESP 15; TEMP 36.7; O2SAT 98; BMI 37.2
--- NOTE | 2021-01-26 13:39 | W.ED.GENADLT ---
HPI - General Adult General: Chief complaint: General Medical Stated complaint: left arm/shoulder numbness intermittently Time Seen by Provider: 01/26/21 13:19 History of Present Illness: HPI narrative: Patient states that the last couple days she has had some pain going down from her neck shoulder area down to her thumb said her thumb feels like it gets tight at times. Said she had can break her shoulder loose the other day when she was driving her shoulder got tight. Onset (ago): day(s) Severity: mild Quality: aching Pain Consistency: intermittent Associated symptoms: Deny chest pain, dyspnea, headache(s), nausea, rash or vomiting Review of Systems Const: Denies: fever(s), chills or body aches Eyes: Denies: change in vision or blurry vision ENMT: Denies: throat pain or nasal congestion Card: Denies: chest pain or dyspnea on exertion Resp: Denies: dyspnea, productive cough or non-productive cough GI: Denies: abdominal pain, nausea or vomiting Musc: Reports: extremity pain (Left shoulder arm thumb trapezius left side); Denies: extremity swelling, joint redness or joint warmth Skin/Breast: Denies: rash Neuro: Reports: other; Denies: headache(s) Psych: Denies: anxiety or depression Armando/Lymph: Denies: easy bruising PFSH ED PFSH: Medical History (Updated 01/26/21 @ 13:36 by DENZEL Peguero) Major depressive disorder, recurrent Social History (Updated 06/15/20 @ 13:29 by Bernabe Santacruz LPN) Smoking and tobacco status: never smoked Alcohol intake: never Current gender identity: Female Female Reproductive History: Date of last menstrual period: 12/31/20 Physical Exam Const: COMMON NORMALS: no acute distress and patient oriented x3 GENERAL APPEARANCE: cooperative Extremity: OTHER: Tender to the left trapezius, good range of motion left upper extremity no swelling erythema warmth noted. Neck appears fine good cervical range of motion. No numbness of distal extremities left or right side. Neuro: COMMON NORMALS: patient oriented x3 Psych: COMMON NORMALS: mental status grossly normal Course Vital Signs: Vital signs: Vital Signs Temperature 98.1 F 01/26/21 13:08 Pulse Rate 82 01/26/21 13:08 Respiratory Rate 15 01/26/21 13:08 Blood Pressure 121/81 01/26/21 13:08 Pulse Oximetry 98 01/26/21 13:08 Discharge Plan Discharge Patient Disposition: Home Clinical Impression: Cervical radiculitis Condition: Stable Prescriptions: New Celebrex 100 mg capsule 100 mg PO BID Qty: 20 RF: 0 cyclobenzaprine 5 mg tablet 5 mg PO TID PRN (Reason: muscle spasm) Qty: 10 RF: 0 No Action sertraline [Zoloft] 100 mg tablet 100 mg PO DAILY RF: 0 sulfamethoxazole-trimethoprim [Bactrim DS] 800-160 mg tablet 1 tab PO BID 7 Days Qty: 14 RF: 0 Discharge Orders: Discharge ED (Routine); Ordered 01/26/21 Ordered By: Shiv Isabel Discharge Diet: Usual diet Discharge Activity: Increase activity as tolerated Patient Instructions: Cervical Radiculopathy (ED) Activity Restrictions/Additional Instructions: Alternate heat and ice to the neck area. Recommend visit with a chiropractor. Take medication as directed. Follow-up with family medical provider if no significant provement. Coding Level of Care Code ED Cattle Alley Worker for Karen Rajput
[2021-01-26 13:49] VITALS: RESP 18
== END 2021-01-26 13:50 | disposition home or self-care (01) ==
PROVIDERS: Emergency Provider Nurse Practitioner Family
DX: M54.12 Radiculopathy, cervical region (principal)
CPT/HCPCS: 99282

== ENCOUNTER 2021-02-28 11:48 | Emergency (ER) | payer BC, MEDICAID, SELFPAY ==
[2021-02-28 13:07] VITALS: BP 125/75; PULSE 78; RESP 16; TEMP 36.8; O2SAT 99; BMI 32.8
--- NOTE | 2021-02-28 14:59 | US_ITS ---
WS: [id number] TRANSVAGINAL PELVIC ULTRASOUND HISTORY: evaluate for pelvic pain, L adnexal tenderness COMPARISON: None available. Uterus: 8.5 cm x 5.7 cm x 4.0 cm. Normal size anteverted uterus. No fibroid or mass. Endometrium: 0.2 cm. Normal. Right ovary: 3.8 cm x 3.4 cm x 2.0 cm. Normal size ovary with multiple small peripheral follicles. No rmal vascularity. Left ovary: 2.6 cm x 3.6 cm x 1.6 cm. Normal size ovary with multiple small peripheral follicles. Nor mal vascularity. No free fluid. US/US transvaginal [id number] IMPRESSION: Normal pelvic ultrasound.
--- NOTE | 2021-02-28 15:05 | W.ED.GENADLT ---
HPI - General Adult General: Chief complaint: Abdominal Pain Stated complaint: Abdominal pain, hair loss Time Seen by Provider: 02/28/21 14:43 History of Present Illness: HPI narrative: Patient is a 20-year-old female with a history of ?ovarian cysts diagnosed during prior previous presents emergency room with worsening pelvic pain x4-month. Since her last in September, patient has had persistent pelvic pain daily from October onwards. Patient says that these pain lasts for 30 minutes at a time is crampy in nature and is occasionally relieved with ibuprofen. Patient is not followed by HEALTH SERVICES DIRECTOR provider. Denies any new vaginal discharge, regular cramps contraction, heavy vaginal bleeding, new vaginal discharge, passage of clots, diarrhea/melena/hematochezia, abdominal complaints, nausea/vomiting, fever/chills, or other complaints at this time. Patient also being stressed out to the point of losing her hair. Onset: 4 months ago Duration: 4 months Location:home Severity: mil/moderate Review of Systems Narrative: Constitutional: No fever, no chills. HEENT: No vision changes CV: No chest pain, no palpitations PULM: no cough, no dyspnea. GI: No abdominal pain, no N/V/D. : No dysuria, +b/l pelvic pain/cramps MSKEL: No muscle pain SKIN: No new rashes, no lesions. NEURO: No headache, no focal weakness. HEME: No visible bruises PSYCH: Normal mood [facility] ED PFSH: Medical History (Updated 02/28/21 @ 15:13 by Xiao Ruby MD) Major depressive disorder, recurrent Social History (Updated 06/15/20 @ 13:29 by Bernabe Santacruz LPN) Smoking and tobacco status: never smoked Alcohol intake: never Current gender identity: Female Female Reproductive History: Date of last menstrual period: 02/04/21 Physical Exam Narrative: EXAM NARRATIVE: Head: Atraumatic Eyes: PERRL, conjunctiva without injection ENT: Mucous membrane moist NECK: Supple, ROM intact LUNGS: LCTAB, no crackles/rhonchi CV: RRR ABDOMEN: Soft, nontender in all quadrants, +L suprapubic tenderness to palpation, no guarding or rebound tenderness, no CVA tenderness EXTREMITY: Normal ROM SKIN: No rash or erythema NEURO: Awake and alert, no focal motor deficits PSYCH: Normal mood and affect : Patient declined exam today Course Vital Signs: Vital signs: Vital Signs Temperature 98.3 F 02/28/21 13:07 Pulse Rate 67 02/28/21 17:08 Respiratory Rate 16 02/28/21 13:07 Blood Pressure 130/98 02/28/21 17:08 Pulse Oximetry 96 02/28/21 17:08 MDM - General Adult MDM Narrative: Medical decision making narrative: 20-year-old female history ovarian cyst presents emergency room with worsening pelvic cramps daily x4-month. On exam, patient is hemodynamically stable with left pelvic tenderness to palpation. Patient deferred pelvic exam today but however agreed to transvaginal ultrasound. Patient is not today. H&H stable. No signs of leukocytosis. Transvaginal ultrasound negative for acute findings. UA negative for UTI. I have given patient follow-up with HEALTH SERVICES DIRECTOR provider for further evaluation of her cramps. At present time, patient is pain-free, in no acute distress. I have given patient followup with HEALTH SERVICES DIRECTOR. Rx Tylenol as needed pain Disposition: Discharge. Patient is given strict return precaution for any worsening pain, regular contractions, new vaginal discharge, vaginal bleeding, or any new concerning complaints. Lab Data: Labs: Lab Results 02/28/21 02/28/21 02/28/21 Range/Units 15:41 15:41 15:50 WBC 9.1 (4.0-10.0) 10^3/ uL RBC 4.73 (4.1-5.3) 10^6/u L Hgb 12.9 (11.5-15.3) g/dL Hct 41.3 (37.0-47.0) % MCV 87.3 (81-99) fl MCH 27.3 L (28.0-34.0) pg MCHC 31.2 (30.0-36.0) g/dL RDW 13.0 (12.1-15.1) % Plt Count 308 (130-400) 10^3/c mm MPV 9.3 (7.4-10.4) fL Neut % (Auto) 63.6 % Lymph % (Auto) 24.0 % Seminole % (Auto) 8.0 % Eos % (Auto) 3.8 % Baso % (Auto) 0.4 % Neut # (Auto) 5.79 (1.8-7.7) 10^3/u L Lymph # (Auto) 2.2 (0.8-4.8) 10^3/u L Seminole # (Auto) 0.7 (0.2-0.9) 10^3/u L Eos # (Auto) 0.4 (0.0-0.8) 10^3/u L Baso # (Auto) 0.0 (0.0-0.1) 10^3/u L Nucleated RBC % (a uto) 0 % Nucleated RBCs # 0.0 /100WBC Sodium 140 (136-145) mmol/L Potassium 4.0 (3.5-5.1) mmol/L Chloride 106 (98-107) mmol/L Carbon Dioxide 25 (22-29) mmol/L Anion Gap 13.0 (5-19) BUN 8 (6-20) mg/dL Creatinine 0.5 (0.5-0.9) mg/dL GFR Calculation 155.7 H (90-130) mL/min Glucose 89 (65-115) mg/dL Calculated Osmolal ity 288 (285-295) mOsm/k g Calcium 8.6 (8.5-10.5) mg/dL Total Bilirubin 0.2 (0.15-1.2) mg/dL AST 25 (0-32) U/L ALT 35 H (0-33) U/L Alkaline Phosphata se 120 H (35-105) IU/L Total Protein 6.7 (6.6-8.7) g/dL Albumin 4.1 (3.5-5.2) g/dL Globulin 2.6 (1.3-4.6) g/dL Lipase 45 (13-60) U/L TSH 0.78 (0.27-4.20) uIU/ mL Free T4 1.24 (0.82-1.77) ng/d L Urine Color (Yellow) Urine Appearance (CLEAR) Urine pH (5-7) Ur Specific Gravit y (1.005-1.030) Urine Protein (Negative) Urine Glucose (UA) (Normal) Urine Ketones (Negative) Urine Blood (Negative) Urine Nitrate (Negative) Urine Bilirubin (Negative) Prot Sulfosalicyli c Acd (Negative) Urine Urobilinogen (Negative) mg/dL Ur Leukocyte Sharon ase (Negative) Urine HCG, Qual Negative (Negative) 02/28/21 Range/Units 15:50 WBC (4.0-10.0) 10^3/ uL RBC (4.1-5.3) 10^6/u L Hgb (11.5-15.3) g/dL Hct (37.0-47.0) % MCV (81-99) fl MCH (28.0-34.0) pg MCHC (30.0-36.0) g/dL RDW (12.1-15.1) % Plt Count (130-400) 10^3/c mm MPV (7.4-10.4) fL Neut % (Auto) % Lymph % (Auto) % Seminole % (Auto) % Eos % (Auto) % Baso % (Auto) % Neut # (Auto) (1.8-7.7) 10^3/u L Lymph # (Auto) (0.8-4.8) 10^3/u L Seminole # (Auto) (0.2-0.9) 10^3/u L Eos # (Auto) (0.0-0.8) 10^3/u L Baso # (Auto) (0.0-0.1) 10^3/u L Nucleated RBC % (a uto) % Nucleated RBCs # /100WBC Sodium (136-145) mmol/L Potassium (3.5-5.1) mmol/L Chloride (98-107) mmol/L Carbon Dioxide (22-29) mmol/L Anion Gap (5-19) BUN (6-20) mg/dL Creatinine (0.5-0.9) mg/dL GFR Calculation (90-130) mL/min Glucose (65-115) mg/dL Calculated Osmolal ity (285-295) mOsm/k g Calcium (8.5-10.5) mg/dL Total Bilirubin (0.15-1.2) mg/dL AST (0-32) U/L ALT (0-33) U/L Alkaline Phosphata se (35-105) IU/L Total Protein (6.6-8.7) g/dL Albumin (3.5-5.2) g/dL Globulin (1.3-4.6) g/dL Lipase (13-60) U/L TSH (0.27-4.20) uIU/ mL Free T4 (0.82-1.77) ng/d L Urine Color Straw (Yellow) Urine Appearance Clear (CLEAR) Urine pH 9 H (5-7) Ur Specific Gravit y 1.015 (1.005-1.030) Urine Protein Neg (Negative) Urine Glucose (UA) Norm (Normal) Urine Ketones Negative (Negative) Urine Blood Neg (Negative) Urine Nitrate Negative (Negative) Urine Bilirubin Neg (Negative) Prot Sulfosalicyli c Acd Negative (Negative) Urine Urobilinogen Norm (Negative) mg/dL Ur Leukocyte Sharon ase Negative (Negative) Urine HCG, Qual (Negative) Imaging Data^: Other Imaging: Radiologist's impression: [address] [id number] ReportSigned Patient: Salina Hirsch #: [id number]: 2000Acct#:[id number]/Sex: 20 / FADM Date: 02/28/21Loc: ERRoom/Bed:Attending Dr: Ordering Provider/Ordering MD: Xiao Ruby MD Date of Service: 02/28/21 Procedure(s): US transvaginal [id number] Accession Number(s): [id number] Report Number: [id number] WS: [id number] TRANSVAGINAL PELVIC ULTRASOUND HISTORY: evaluate for pelvic pain, L adnexal tenderness COMPARISON: None available. Uterus: 8.5 cm x 5.7 cm x 4.0 cm. Normal size anteverted uterus. No fibroid or mass. Endometrium: 0.2 cm. Normal. Right ovary: 3.8 cm x 3.4 cm x 2.0 cm. Normal size ovary with multiple small peripheral follicles. Normal vascularity. Left ovary: 2.6 cm x 3.6 cm x 1.6 cm. Normal size ovary with multiple small peripheral follicles. Normal vascularity. No free fluid. US/US transvaginal [id number] IMPRESSION: Normal pelvic ultrasound. Dictated By:Mehreen Vieira DOSigned By:Mehreen Vieira DOSigned Date/Time:02/28/21 1540DD/ 1539 Discharge Plan Discharge Patient Disposition: Home Clinical Impression: Pelvic cramping Condition: Stable Prescriptions: New acetaminophen 500 mg tablet 500 mg PO Q6H PRN (Reason: pain) 5 Days Qty: 20 RF: 0 No Action sertraline [Zoloft] 100 mg tablet 100 mg PO DAILY RF: 0 Discharge Orders: Discharge ED (Routine); Ordered 02/28/21 Ordered By: Xiao Ruby Discharge Diet: Advance as tolerated Discharge Activity: Resume usual activity Patient Instructions: Pelvic Pain Activity Restrictions/Additional Instructions: Please follow-up with a HEALTH SERVICES DIRECTOR doctor for evaluation of your pain. Come back to the emergency room if your cramps are worsened, have new vaginal discharge or bleeding fever/chills, abdominal pain, any new or concerning complaints. Coding Level of Care Code ED Fuel Yard Operator for Karen Rajput
[2021-02-28] MEDS: acetaminophen 500 mg Tablet PO (15:37)
[2021-02-28 15:55] LABS: Basophils % 0.4 %; Eosinophils # 0.4 10^3/uL (0.0-0.8); Eosinophils % 3.8 %; Hematocrit 41.3 % (37.0-47.0); Hemoglobin 12.9 g/dL (11.5-15.3); Lymphocytes # 2.2 10^3/uL (0.8-4.8); Mean Corpuscular HGB Conc 31.2 g/dL (30.0-36.0); Mean Corpuscular Hemoglobin 27.3 pg (28.0-34.0); Mean Corpuscular Volume 87.3 fl (81-99); Mean Platelet Volume 9.3 fL (7.4-10.4); Monocytes # 0.7 10^3/uL (0.2-0.9); Neutrophils # 5.79 10^3/uL (1.8-7.7); Neutrophils % 63.6 %; Nucleated Red Blood Cells % 0 %; Platelet Count 308 10^3/cmm (130-400); Red Blood Count 4.73 10^6/uL (4.1-5.3); White Blood Count 9.1 10^3/uL (4.0-10.0)
[2021-02-28 16:22] LABS: Add Urine Microscopic? NO; Charge for UA Resulting for Rev
[2021-02-28 16:30] LABS: Alanine Aminotransferase 35 U/L (0-33); Albumin Level 4.1 g/dL (3.5-5.2); Alkaline Phosphatase 120 IU/L (35-105); Aspartate Amino Transferase 25 U/L (0-32); Blood Urea Nitrogen 8 mg/dL (6-20); Calcium 8.6 mg/dL (8.5-10.5); Carbon Dioxide 25 mmol/L (22-29); Chloride 106 mmol/L (98-107); Free T4 Free Thyroxine 1.24 ng/dL (0.82-1.77); Globulin 2.6 g/dL (1.3-4.6); Glomerular Filtration Rate 155.7 mL/min (90-130); Glucose 89 mg/dL (65-115); Lipase 45 U/L (13-60); Osmolality Calculated 288 mOsm/kg (285-295); Sodium 140 mmol/L (136-145); Thyroid Stimulating Hormone 0.78 uIU/mL (0.27-4.20); Total Bilirubin 0.2 mg/dL (0.15-1.2); Total Protein 6.7 g/dL (6.6-8.7)
[2021-02-28 16:40] LABS: Bilirubin Urine Neg (Negative); Blood Urine Neg (Negative); Glucose Urine UA Norm (Normal); Ketones Urine Negative (Negative); Leukocyte Esterase Urine Negative (Negative); Nitrate Urine Negative (Negative); Protein Urine Neg (Negative); Specific Gravity, Urine 1.015 (1.005-1.030); Sulfosalicylic Acid Urine Negative (Negative); Urine Appearance Clear (CLEAR); Urine Color Straw (Yellow); Urobilinogen Urine Norm (Negative); pH Urine 9 (5-7)
[2021-02-28 17:08] VITALS: BP 130/98; PULSE 67; O2SAT 96
--- NOTE | 2021-03-01 10:43 | DCPLANNER ---
manager of planning had message to schedule a follow up appointment for patient with [facility]. manager of planning called the [facility], spoke with Silvia, gave clinic patients information. manager of planning was told that patients information would be printed and reviewed. Clinic will call patient with patient information.
--- NOTE | 2021-03-02 12:36 | DCPLANNER ---
Addendum entered by Amrita Marrufo 07/08/21 11:12: Patient had a follow up appointment scheduled for 04.07.21 with [facility] - patient did not attend appointment. Original Note: Patient has a follow up appointment scheduled for , April 07, 2021 at 1:[address] Ramirez. Clinic will call patient with appointment information.
== END 2021-02-28 17:09 | disposition home or self-care (01) ==
PROVIDERS: Emergency Provider Emergency Medicine
DX: R10.2 Pelvic and perineal pain (principal)
CPT/HCPCS: 76830; 80053; 81003; 81025; 83690; 84439; 84443; 85025; 99283

== ENCOUNTER 2021-04-03 08:39 | Emergency (ER) | payer BC, MEDICAID, SELFPAY ==
[2021-04-03 08:51] VITALS: BP 132/85; PULSE 87; RESP 14; TEMP 36.9; O2SAT 98; BMI 33.6
--- NOTE | 2021-04-03 09:04 | W.ED.EXTPRO ---
HPI - Extremity Problem General: Chief complaint: Extremity Injury, Lower Stated complaint: L ANKLE INJURY 04/02 Time Seen by Provider: 04/03/21 09:04 Source: patient History of Present Illness: HPI Narrative: 21-year-old female presents emergency department chief complaint of left ankle pain swelling and foot pain she reports that she rolled her ankle yesterday over her dog patient reports having a known history of prior injury noted to that ankle. She reports that she was told previously was 18. Patient reports surgery later it did not completely heal patient reports moderate swelling noted to the lateral compartment of the left ankle reports diminished sensation to touch noted of the great toe reports reduced range of motion due to significant pain and discomfort The patient reports she sustained no other associated injuries. MD Complaint: extremity pain, extremity swelling, joint swelling and joint pain Onset (ago): day(s) (1) Pain Consistency: constant Location: left Quality: constant Radiation: none Relieving factors: rest Exacerbating factors: weight bearing and walking Associated symptoms: Deny chest pain, fever(s) or rash Review of Systems General: Reports: 10 or more systems reviewed and unremarkable except in HPI and below Const: Denies: fever(s), chills, fatigue or malaise Eyes: Denies: change in vision or blurry vision Card: Denies: chest pain or palpitations Resp: Denies: dyspnea or productive cough GI: Denies: abdominal pain, nausea or vomiting : Denies: flank pain Musc: Reports: extremity pain, extremity swelling, joint pain, joint swelling, joint stiffness and limited range of motion Skin/Breast: Denies: rash or pruritus Neuro: Denies: headache(s) Psych: Denies: anxiety or depression Armando/Lymph: Denies: easy bleeding All/Imm: Denies: urticaria, throat swelling or facial swelling [facility] ED PFSH: Medical History (Updated 04/03/21 @ 12:30 by Pranav Mixon) Major depressive disorder, recurrent Social History (Updated 06/15/20 @ 13:29 by Bernabe Santacruz LPN) Smoking and tobacco status: never smoked Alcohol intake: never Current gender identity: Female Female Reproductive History: Date of last menstrual period: 03/21/21 Physical Exam Narrative: EXAM NARRATIVE: Patient appears to be in mild distress due to pain and discomfort. Const: COMMON NORMALS: no acute distress, patient oriented x3 and healthy appearing HENMT: COMMON NORMALS: normocephalic and atraumatic HEAD & SCALP: normocephalic and atraumatic Eye: COMMON NORMALS: Equal, round and reactive pupils present and EOMs intact bilaterally PUPIL: Yes Equal, round and reactive pupils present Neck/C-Spine: COMMON NORMALS: full ROM, supple and no JVD Lymph: LYMPHATIC: no lymphadenopathy noted Chest: COMMONS NORMALS: normal inspection of the chest and normal palpation of entire chest wall Resp: COMMON NORMALS: normal respiratory effort, No retractions and clear to auscultation bilaterally EFFORT & INSPECTION: Yes able to speak in complete sentences and Yes symmetric chest movement AUSCULTATION: clear to auscultation bilaterally Cardio: COMMON NORMALS: no JVD, regular rate and regular rhythm RATE: regular rate RHYTHM: regular rhythm GI: COMMON NORMALS: Normal to inspection, nondistended, normoactive bowel sounds present, Soft to palpation and non-tender INSPECTION: Yes normal to inspection PALPATION: Yes Soft to palpation : COMMON NORMALS: Yes no CVA tenderness BLADDER/KIDNEY EXAM: Yes no CVA tenderness Back/Pelvis: COMMON NORMALS: no CVA tenderness Extremity: NARRATIVE EXTREMITY EXAM: Moderate swelling appreciated lateral malleolus of the left ankle reduced range of motion of flexion extension due to pain noted neurovascular tact distally mild subjective numbness appreciated to the great toe. Neuro: COMMON NORMALS: patient oriented x3, CN's II-XII intact bilaterally, moves all extremities and no focal motor deficits Psych: COMMON NORMALS: mental status grossly normal, Normal thought process present, cooperative and normal affect THOUGHT PROCESS: Normal thought process present Skin: COMMON NORMALS: no rashes or lesions noted GENERAL SKIN EXAM: no rashes or lesions noted Course Vital Signs: Vital signs: Vital Signs Temperature 98.5 F 04/03/21 08:51 Pulse Rate 87 04/03/21 08:51 Respiratory Rate 14 04/03/21 08:51 Blood Pressure 132/85 04/03/21 08:51 Pulse Oximetry 98 04/03/21 08:51 MDM - Extremity (Nontraumatic) MDM Narrative: Medical decision making narrative: Due to the due to patient symptom condition x-ray imaging of the ankles obtained and this revealed no obvious acute underlying fracture reviewed the patient's considerable amount of pain discomfort and difficulty with weightbearing will place patient into a stirrup splint and crutches patient was started on tramadol for breakthrough pain control advised further follow-up with primary care especially if her symptoms continued in the next 2 to 3 days which is advised to return in the interim if any of her symptoms persist or worsen. Discharge Plan Discharge Patient Disposition: Home Clinical Impression: Left ankle strain, Ankle sprain and strain Condition: Stable Prescriptions: New Ultram 50 mg tablet 50 mg PO Q8H PRN (Reason: pain) Qty: 15 RF: 0 No Action sertraline [Zoloft] 100 mg tablet 100 mg PO DAILY RF: 0 Discharge Orders: Discharge ED (Routine); Ordered 04/03/21 Ordered By: Pranav Mixon Referrals: [facility] [Provider Group] - 1-3 days Discharge Diet: Regular Discharge Activity: Resume usual activity, Limit activity as instructed and Use walker/crutches as instructed Patient Instructions: Ankle Sprain (ED), Ankle Strain (ED), Opioid Safety Activity Restrictions/Additional Instructions: Please follow-up with your primary care doctor in 2 to 3 days as needed if your symptoms continue, take medication as prescribed as well as return the interim if any of her symptoms persist or worse. Coding Level of Care Code ED Basic Combatant Swimmer for Karen Rajput
--- NOTE | 2021-04-03 10:20 | XRR_ITS ---
PROCEDURE INFORMATION: Exam: XR Left Ankle Exam date and time: 04/03/2021 10:20 AM Age: 21 years old Clinical indication: Injury or trauma; Fall; Sprain or strain; Ankle; Left TECHNIQUE: Imaging protocol: XR Left ankle. Views: 3 or more views. COMPARISON: No relevant prior studies available. FINDINGS: Bones/joints: No fracture or dislocation. Soft tissues: Swelling of the soft tissues around the ankle is present. XR/XR ankle LT min 3V* [id number] IMPRESSION: No acute injury. Radiation Dose CTDIVOL = (mGy): DLP = (mGy-cm)
== END 2021-04-03 14:04 | disposition home or self-care (01) ==
PROVIDERS: Emergency Provider Emergency Medicine
DX: S96.912A Strain of unspecified muscle and tendon at ankle and foot level, left foot, initial encounter (principal); S93.402A Sprain of unspecified ligament of left ankle, initial encounter; X50.1XXA Overexertion from prolonged static or awkward postures, initial encounter
CPT/HCPCS: 29515; 73610; 99283

== ENCOUNTER 2021-07-03 12:06 | Emergency (ER) | payer BC, MEDICAID, SELFPAY ==
[2021-07-03 12:32] VITALS: BP 130/86; PULSE 93; RESP 18; TEMP 36.8; O2SAT 98; BMI 38.6
--- NOTE | 2021-07-03 13:00 | ED_ITS ---
HPI - General Adult General: Chief complaint: General Medical Stated complaint: COUGH, RUNNY NOSE Time Seen by Provider: 07/03/21 12:55 Source: patient Mode of arrival: ambulatory Limitations: no limitations History of Present Illness: HPI narrative: Patient with complaints of mild nonproductive cough, sinus congestion, sore throat for 3 days. complaint: Sore throat, sinus congestion Onset (ago): day(s) (3) Location: face Radiation: non-radiation Severity: mild Pain Consistency: constant Relieving factors: none Exacerbating factors: none Associated symptoms: Reports cough; Deny chest pain, diaphoresis, dyspnea, headache(s), nausea, rash, palpitations or vomiting Review of Systems Const: Denies: fever(s), chills, body aches, change in appetite, night sweats or diaphoresis Eyes: Denies: change in vision ENMT: Reports: throat pain and nasal congestion; Denies: uvular edema, enlarged tonsils, odynophagia or dental pain Card: Denies: chest pain or palpitations Resp: Reports: non-productive cough; Denies: dyspnea, wheezing or stridor GI: Denies: abdominal pain, nausea or vomiting : Denies: flank pain Musc: Denies: neck pain or back pain Skin/Breast: Denies: rash or pruritus Neuro: Denies: headache(s) or numbness in extremities Psych: Denies: anxiety Armando/Lymph: Denies: enlarged lymph nodes PFSH ED PFSH: Medical History Major depressive disorder, recurrent Social History Smoking and tobacco status: never smoked Alcohol intake: never Current gender identity: Female Female Reproductive History: Date of last menstrual period: 03/21/21 Physical Exam Const: COMMON NORMALS: no acute distress, patient oriented x3, no limitations, alert and well nourished EXAM LIMITATIONS: no altered mental status GENERAL APPEARANCE: cooperative HENMT: COMMON NORMALS: normocephalic, atraumatic and Normal external nose present HEAD & SCALP: normal to inspection, normocephalic and atraumatic FACE & SINUS: normal facial exam and sinuses nontender NOSE: Normal external nose present MOUTH: Normal oral and palatal mucosa present THROAT: posterior oropharynx normal, tonsils normal and uvula midline; no uvular edema Eye: COMMON NORMALS: EOMs intact bilaterally Neck/C-Spine: COMMON NORMALS: full ROM, no lymphadenopathy, supple and no meningeal signs GENERAL: Yes normal visual inspection Lymph: LYMPHATIC: no lymphadenopathy noted Chest: COMMONS NORMALS: normal inspection of the chest and normal palpation of entire chest wall CHEST: No Ecchymosis present and No rash Resp: COMMON NORMALS: normal respiratory effort, No retractions and clear to auscultation bilaterally EFFORT & INSPECTION: No respiratory distress AUSCULTATION: clear to auscultation bilaterally Cardio: COMMON NORMALS: regular rate, regular rhythm and Peripheral pulses 2+ throughout JUGULAR VENOUS DISTENTION: no JVD RATE: regular rate RHYTHM: regular rhythm PERIPHERAL PULSES: Peripheral pulses 2+ throughout GI: COMMON NORMALS: Normal to inspection, nondistended, normoactive bowel sounds present and non-tender : COMMON NORMALS: Yes no CVA tenderness BLADDER/KIDNEY EXAM: Yes no CVA tenderness Back/Pelvis: COMMON NORMALS: no CVA tenderness Extremity: COMMON NORMALS: normal to inspection, full ROM and capillary refill normal Neuro: COMMON NORMALS: patient oriented x3, CN's II-XII intact bilaterally, no focal motor deficits and no sensory deficits noted SENSORIUM/ORIENTATION: Yes alert MENINGEAL SIGNS: Yes no meningeal signs Psych: COMMON NORMALS: mental status grossly normal and Normal thought process present THOUGHT PROCESS: Normal thought process present Skin: COMMON NORMALS: no rashes or lesions noted and no wounds GENERAL SKIN EXAM: no rashes or lesions noted Course Vital Signs: Vital signs: Vital Signs Temperature 98.3 F 07/03/21 12:32 Pulse Rate 93 07/03/21 12:32 Respiratory Rate 18 07/03/21 12:32 Blood Pressure 130/86 07/03/21 12:32 Pulse Oximetry 98 07/03/21 12:32 MDM - General Adult MDM Narrative: Medical decision making narrative: Patient initially agreed to strep swab then refused. Patient states she would like an antibiotic prescription and go home. Discharge Plan Discharge Prescriptions: No Action sertraline [Zoloft] 100 mg tablet 100 mg PO DAILY RF: 0 Ultram 50 mg tablet 50 mg PO Q8H PRN (Reason: pain) Qty: 15 RF: 0 Coding Level of Care Code ED Director Labor Standards for Chg Fwd Exam Comprehensive
== END 2021-07-03 13:47 | disposition home or self-care (01) ==
PROVIDERS: Emergency Provider Family Medicine
DX: R05.9 Cough, unspecified (principal); R09.89 Other specified symptoms and signs involving the circulatory and respiratory systems
CPT/HCPCS: 99281

== ENCOUNTER 2021-10-08 19:59 | Emergency (ER) | payer BC, MEDICAID, SELFPAY ==
[2021-10-08 20:09] VITALS: PULSE 92; RESP 20; TEMP 36.5; O2SAT 96; BMI 38.0
[2021-10-08] MEDS: sodium chloride 0.9% 1,000 ML 999 ML IV (20:38)
--- NOTE | 2021-10-08 20:39 | PC.NURSE ---
This RN gave report to CELIA Kidd at this time who will assume care.
[2021-10-08 20:43] LABS: Basophils # 0.1 10^3/uL (0.0-0.1); Basophils % 0.5 %; Eosinophils # 0.3 10^3/uL (0.0-0.8); Eosinophils % 2.2 %; Hematocrit 40.5 % (37.0-47.0); Hemoglobin 13.3 g/dL (11.5-15.3); Lymphocytes # 3.6 10^3/uL (0.8-4.8); Lymphocytes % 30.1 %; Mean Corpuscular HGB Conc 32.8 g/dL (30.0-36.0); Mean Corpuscular Hemoglobin 27.8 pg (28.0-34.0); Mean Corpuscular Volume 84.6 fl (81-99); Mean Platelet Volume 9.4 fL (7.4-10.4); Monocytes # 0.8 10^3/uL (0.2-0.9); Monocytes % 6.9 %; Neutrophils # 7.27 10^3/uL (1.8-7.7); Neutrophils % 60.1 %; Nucleated Red Blood Cells % 0 %; Platelet Count 293 10^3/cmm (130-400); Red Blood Count 4.79 10^6/uL (4.1-5.3); Red Cell Distribution Width 13.9 % (12.1-15.1); White Blood Count 12.1 10^3/uL (4.0-10.0)
[2021-10-08 20:43] LABS: Add Urine Microscopic? NO; Charge for UA Resulting for Rev
--- NOTE | 2021-10-08 20:46 | CTR_ITS ---
PROCEDURE INFORMATION: Exam: CT Abdomen And Pelvis With Contrast Exam date and time: 10/08/2021 9:43 PM Age: 21 years old Clinical indication: Abdominal pain; Localized; Patient HX: C/O lower abd pain w nausea - known single kidney - congenital TECHNIQUE: Imaging protocol: Computed tomography of the abdomen and pelvis with contrast. Radiation optimization: All CT scans at this facility use at least one of these dose optimization techniques: automated exposure control; mA and/or kV adjustment per patient size (includes targeted exams where dose is matched to clinical indication); or iterative reconstruction. Contrast material: VISI 320; Contrast volume: 95 ml; Contrast route: INTRAVENOUS (IV); COMPARISON: CT abdomen pelvis w con* [id number] 05/30/2016 1:50 PM RADIATION DOSE METRICS: Total DLP (mGy-cm): 1816.29 FINDINGS: Liver: Normal. No mass. Gallbladder and bile ducts: Normal. No calcified stones. No ductal dilation. Pancreas: Normal. No ductal dilation. Spleen: Normal. No splenomegaly. Adrenal glands: Normal. No mass. Kidneys and ureters: Right kidney is absent. Stomach and bowel: Unremarkable. No obstruction. No mucosal thickening. Appendix: No evidence of appendicitis. Intraperitoneal space: Unremarkable. No free air. No significant fluid collection. Arteries: Unremarkable. No abdominal aortic aneurysm. Lymph nodes: Unremarkable. No enlarged lymph nodes. Urinary bladder: Unremarkable as visualized. Reproductive: Right ovary 3.8 cm septated cyst, likely follicular, ultrasound could further evaluate this. Bones/joints: Unremarkable. No acute fracture. Soft tissues: Unremarkable. CT/CT abdomen pelvis w con* [id number] IMPRESSION: 1. Right ovary 3.8 cm septated cyst, likely follicular, ultrasound could further evaluate this. 2. Right kidney is absent.
[2021-10-08 20:53] VITALS: RESP 16
[2021-10-08] MEDS: ondansetron 2 mg/ML SDV 2 mL 4 MG IVP (20:53)
[2021-10-08] MEDS: morphine 4 mg/mL SDV 1 mL IVP (20:53)
[2021-10-08 20:55] LABS: Bilirubin Urine Neg (Negative); Blood Urine Neg (Negative); Glucose Urine UA Norm (Normal); Ketones Urine Negative (Negative); Leukocyte Esterase Urine Negative (Negative); Nitrate Urine Negative (Negative); Protein Urine Neg (Negative); Specific Gravity, Urine 1.025 (1.005-1.030); Urine Appearance Clear (CLEAR); Urine Color Yellow (Yellow); Urobilinogen Urine Norm (Negative); pH Urine 5 (5-7)
[2021-10-08 21:01] VITALS: BP 124/74; PULSE 89; RESP 16; TEMP 36.5; O2SAT 97
[2021-10-08 21:09] LABS: Alanine Aminotransferase 18 U/L (0-33); Albumin Level 4.2 g/dL (3.5-5.2); Alkaline Phosphatase 123 IU/L (35-105); Anion Gap 13.4 (5-19); Aspartate Amino Transferase 15 U/L (0-32); Blood Urea Nitrogen 11 mg/dL (6-20); Calcium 8.7 mg/dL (8.5-10.5); Carbon Dioxide 23 mmol/L (22-29); Chloride 101 mmol/L (98-107); Globulin 3.6 g/dL (1.3-4.6); Glomerular Filtration Rate 154.3 mL/min (90-130); Glucose 89 mg/dL (65-115); Lipase 37 U/L (13-60); Osmolality Calculated 277 mOsm/kg (285-295); Potassium 3.4 mmol/L (3.5-5.1); Sodium 134 mmol/L (136-145); Total Bilirubin 0.2 mg/dL (0.15-1.2); Total Protein 7.8 g/dL (6.6-8.7)
[2021-10-08 21:29] LABS: HCG Qualitative Urine. Negative (Negative)
[2021-10-08] MEDS: iodixanol 320 mg/mL 100mL Btl IV (21:51)
--- NOTE | 2021-10-08 22:37 | ED_ITS ---
HPI - Abdominal Pain General: Chief Complaint: Abdominal Pain Stated Complaint: lower abdominal pain Time Seen by Provider: 10/08/21 20:20 Source: patient History of Present Illness: 1-year-old female that complains of bilateral lower abdominal pain, that started this evening. No fever, no vomiting. No increase in vaginal discharge or change. No vaginal bleeding. She does not believe she is . She has a Nexplanon. She has had a problem with ovarian cysts in the past. MD elicited complaint: abdominal pain Pertinent past history: other Onset (ago): hour(s) Pain Consistency: constant Location: RLQ, LLQ and Suprapubic Severity: moderate Quality: cramping and stabbing Radiation: none Migration to: no migration Exacerbating factors: movement Relieving factors: nothing Associated Symptoms: Reports nausea; Denies change in stool character, constipation, diarrhea, dysuria, fever(s), hematochezia, loose stools and vomiting Related Data: Date of Last Menstrual Period: 08/18/21 Review of Systems Const: Denies: fever(s) ENMT: Denies: throat pain Card: Denies: chest pain Resp: Denies: dyspnea, productive cough or non-productive cough GI: Reports: nausea; Denies: vomiting, diarrhea, constipation, change in stool character or hematochezia : Denies: flank pain, dysuria, vaginal odor, vaginal bleeding or vaginal discharge [facility] ED PFSH: Medical History (Updated 10/08/21 @ 22:56 by Howie Santos DO) Major depressive disorder, recurrent Social History Smoking and tobacco status: never smoked Alcohol intake: never Current gender identity: Female Female Reproductive History: Date of last menstrual period: 08/18/21 Physical Exam Const: GENERAL APPEARANCE: cooperative; not ill appearing HENMT: COMMON NORMALS: normocephalic and atraumatic HEAD & SCALP: normocephalic and atraumatic Eye: COMMON NORMALS: Equal, round and reactive pupils present and EOMs intact bilaterally PUPIL: Yes Equal, round and reactive pupils present Resp: COMMON NORMALS: normal respiratory effort, No use of accessory muscles and clear to auscultation bilaterally AUSCULTATION: clear to auscultation bilaterally Cardio: COMMON NORMALS: regular rate and regular rhythm RATE: regular rate RHYTHM: regular rhythm GI: COMMON NORMALS: Soft to palpation INSPECTION: Yes normal to inspection PALPATION: Yes Soft to palpation and Yes Tenderness to palpation present (GI) (Suprapubic) Details: LLQ : COMMON NORMALS: Yes no CVA tenderness BLADDER/KIDNEY EXAM: Yes no CVA tenderness Back/Pelvis: COMMON NORMALS: no CVA tenderness Neuro: HARIS COMA SCALE: document GCS findings Prue coma scale eye opening: Spontaneous Prue coma scale verbal response: Orientated Prue coma scale motor response: Obey commands Prue coma scale total score: 15 Course Vital Signs: Vital signs: Vital Signs Temperature 97.7 F 10/08/21 21:01 Pulse Rate 89 10/08/21 21:01 Respiratory Rate 16 10/08/21 21:01 Blood Pressure 124/74 10/08/21 21:01 Pulse Oximetry 97 10/08/21 21:01 MDM - Abdominal Pain Medical Decision Making White blood cell count is 12. Potassium mildly low at 3.4. Otherwise BMP normal. No left shift on CBC. Patient has congenital absence of the right kidney. She has a right ovary 3.8 cm septated cyst. She is not . She does not have any significant discharge history. Gonorrhea and Chlamydia testing is pending. She will be allowed discharge. Lab Data : 10/08/21 20:32 10/08/21 20:32 Labs/Radiology: Radiology Impressions Abdomen/Pelvis CT 10/08/21 20:46 IMPRESSION: 1. Right ovary 3.8 cm septated cyst, likely follicular, ultrasound could further evaluate this. 2. Right kidney is absent. Laboratory Results WBC 12.1 10^3/uL (4.0-10.0) H 10/08/21 20:32 RBC 4.79 10^6/uL (4.1-5.3) 10/08/21 20:32 Hgb 13.3 g/dL (11.5-15.3) 10/08/21 20:32 Hct 40.5 % (37.0-47.0) 10/08/21 20:32 MCV 84.6 fl (81-99) 10/08/21 20:32 MCH 27.8 pg (28.0-34.0) L 10/08/21 20:32 MCHC 32.8 g/dL (30.0-36.0) 10/08/21 20: RDW 13.9 % (12.1-15.1) 10/08/21 20: Plt Count 293 10^3/cmm (130-400) 10/08/21 20: MPV 9.4 fL (7.4-10.4) 10/08/21 20: Neut % (Auto) 60.1 % 10/08/21 20: Lymph % (Auto) 30.1 % 10/08/21 20: [place] % (Auto) 6.9 % 10/08/21 20: Eos % (Auto) 2.2 % 10/08/21 20: Baso % (Auto) 0.5 % 10/08/21: Neut # (Auto) 7.27 10^3/uL (1.8-7.7) 10/08/21 20: Lymph # (Auto) 3.6 10^3/uL (0.8-4.8) 10/08/21 20: [place] # (Auto) 0.8 10^3/uL (0.2-0.9) 10/08/21 20: Eos # (Auto) 0.3 10^3/uL (0.0-0.8) 10/08/21: Baso # (Auto) 0.1 10^3/uL (0.0-0.1) 10/08/21 20: Nucleated RBC % (auto) 0 % 10/08/21 20: Nucleated RBCs # 0.0 /100WBC 10/08/21 20: Sodium 134 mmol/L (136-145) L 10/08/21 20: Potassium 3.4 mmol/L (3.5-5.1) L 10/08/21 20: Chloride 101 mmol/L (98-107) 10/08/21 20: Carbon Dioxide 23 mmol/L (22-29) 10/08/21 20: Anion Gap 13.4 (5-19) 10/08/21 20:32 BUN 11 mg/dL (6-20) 10/08/21 20:32 Creatinine 0.5 mg/dL (0.5-0.9) 10/08/21 20:32 GFR Calculation 154.3 mL/min (90-130) H 10/08/21 20:32 Glucose 89 mg/dL (65-115) 10/08/21 20:32 Calculated Osmolality 277 mOsm/kg (285-295) L 10/08/21 20:32 Calcium 8.7 mg/dL (8.5-10.5) 10/08/21 20:32 Total Bilirubin 0.2 mg/dL (0.15-1.2) 10/08/21 20:32 AST 15 U/L (0-32) 10/08/21 20: ALT 18 U/L (0-33) 10/08/21 20:32 Alkaline Phosphatase 123 IU/L (35-105) H 10/08/21 20: C-Reactive Protein 16.0 mg/L (0.0-4.9) H 10/08/21 20: Total Protein 7.8 g/dL (6.6-8.7) 10/08/21 20: Albumin 4.2 g/dL (3.5-5.2) 10/08/21 20: Globulin 3.6 g/dL (1.3-4.6) 10/08/21 20: Lipase 37 U/L (13-60) 10/08/21 20:32 HCG, Qual Negative (Negative) 10/08/21 20: Urine Color Yellow (Yellow) 10/08/21 20:30 Urine Appearance Clear (CLEAR) 10/08/21 20:30 Urine pH 5 (5-7) 10/08/21 20:30 Ur Specific [place] 1.025 (1.005-1.030) 10/08/21 20: Urine Protein Neg (Negative) 10/08/21 20:30 Urine Glucose (UA) Norm (Normal) 10/08/21 20:30 Urine Ketones Negative (Negative) 10/08/21 20:30 Urine Blood Neg (Negative) 10/08/21 20:30 Urine Nitrate Negative (Negative) 10/08/21 20:30 Urine Bilirubin Neg (Negative) 10/08/21 20:30 Urine Urobilinogen Norm mg/dL (Negative) 10/08/21 20:30 Ur Leukocyte Esterase Negative (Negative) 10/08/21 20:30 Discharge Plan Discharge Patient Disposition: Home Clinical Impression: Abdominal pain, Ovarian cyst Condition: Stable Prescriptions: New ketorolac 10 mg tablet 10 mg PO TID PRN (Reason: pain) Qty: 10 0RF No Action sertraline [Zoloft] 100 mg tablet 100 mg PO DAILY 0RF Ultram 50 mg tablet 50 mg PO Q8H PRN (Reason: pain) Qty: 15 0RF Discharge Orders: Discharge ED (Routine); Ordered 10/08/21 Ordered By: Howie Santos Patient Instructions: Ovarian Cyst (ED), Abdominal Pain (ED) Activity Restrictions/Additional Instructions: Return for fever greater than 100, worsening pain despite treatment, vomiting liquids or medications, any other concerning symptoms. Coding Level of Care Code ED Differential Specialist for Chg Fwd Exam Comprehensive
[2021-10-08 23:08] VITALS: BP 119/72; PULSE 91; RESP 16; TEMP 36.5; O2SAT 97
[2021-10-08] MEDS: ketorolac 30 mg/mL INJ 15 MG IVP (23:10)
== END 2021-10-08 23:10 | disposition home or self-care (01) ==
PROVIDERS: Emergency Provider Emergency Medicine
DX: N83.291 Other ovarian cyst, right side (principal); Z90.5 Acquired absence of kidney
CPT/HCPCS: 74177; 80053; 81003; 81025; 83690; 85025; 86140; 87491; 96361; 96374; 96375; 99284; J1885; J2270; J2405; J7030; Q9967

== ENCOUNTER 2021-10-14 19:05 | Emergency (ER) | payer BC, MEDICAID, SELFPAY ==
[2021-10-14 19:11] VITALS: BP 122/69; PULSE 86; RESP 16; TEMP 36.6; O2SAT 98; BMI 37.9
--- NOTE | 2021-10-14 19:26 | ED_ITS ---
Documented by User: DENZEL Arellano 10/14/21 20:34 HPI - Abdominal Pain General: Chief Complaint: Abdominal Pain Stated Complaint: abd pain Time Seen by Provider: 10/14/21 19:26 History of Present Illness: 21-year-old female comes in today with right lower quadrant abdominal pain. On exam patient appears nontoxic. Patient appears in mild to no pain. Patient reports minimal relief with ibuprofen or ketorolac. Patient denies any fever but does report some occasional diarrhea. Patient was born with 1 kidney. Patient takes Zoloft routinely. Associated Symptoms: Reports diarrhea and fever(s) Related Data: Date of Last Menstrual Period: 08/16/21 Review of Systems General: Reports: 10 or more systems reviewed and unremarkable except in HPI and below Const: Reports: fever(s) Card: Denies: chest pain Resp: Denies: dyspnea GI: Reports: abdominal pain and diarrhea : Denies: flank pain or difficulty voiding Musc: Reports: back pain Skin/Breast: Denies: rash PFSH ED PFSH: Medical History (Updated 10/14/21 @ 20:23 by DENZEL Arellano) Major depressive disorder, recurrent Social History Smoking and tobacco status: never smoked Alcohol intake: never Current gender identity: Female Female Reproductive History: Date of last menstrual period: 08/16/21 Physical Exam Const: COMMON NORMALS: alert HENMT: COMMON NORMALS: normocephalic HEAD & SCALP: normocephalic Neck/C-Spine: COMMON NORMALS: full ROM Resp: COMMON NORMALS: normal respiratory effort Cardio: COMMON NORMALS: regular rate and regular rhythm RATE: regular rate RHYTHM: regular rhythm GI: COMMON NORMALS: Soft to palpation AUSCULTATION: Yes normoactive bowel sounds PALPATION: Yes Soft to palpation and Yes Tenderness to palpation present (GI) (Right pelvic area) : COMMON NORMALS: Yes no CVA tenderness BLADDER/KIDNEY EXAM: Yes no CVA tenderness Back/Pelvis: COMMON NORMALS: no CVA tenderness Extremity: COMMON NORMALS: normal to inspection Neuro: SENSORIUM/ORIENTATION: Yes alert Skin: COMMON NORMALS: no rashes or lesions noted GENERAL SKIN EXAM: no rashes or lesions noted Course Vital Signs: Vital signs: Vital Signs Temperature 97.8 F 10/14/21 19:11 Pulse Rate 86 10/14/21 19:11 Respiratory Rate 16 10/14/21 19:11 Blood Pressure 122/69 10/14/21 19:11 Pulse Oximetry 98 10/14/21 19:11 MDM - Abdominal Pain Medical Decision Making 21-year-old female comes in today with complaints of right lower pelvic pain. Patient was diagnosed with ovarian cyst last week. Patient reports today she was working and moving a lot and started having increased pain and discomfort to the right lower quadrant. Patient denies any fever nausea vomiting but occasional diarrhea. On exam abdomen soft with some right lower quadrant abdominal tenderness. No rebound tenderness. Skin is warm and dry. Vital signs are normal. Differential diagnosis includes ovarian cyst, gastroenteritis, PID. Laboratory values are unchanged from last weeks. I went ahead and ordered a ultrasound of the pelvis which noticed the ovarian cyst and good blood flow to the ovary. Reviewed exam with patient with recommendations for follow-up with MEDICAL ANTHROPOLOGY DIRECTOR for further evaluation and treatment of ovarian cyst. Patient be started on some naproxen for better pain and prostaglandin control. Plan that we will improve her pain control. Patient was also given a few hydrocodone for severe pain. Patient reported understanding of care plan need for follow-up or return to the ER. Lab Data : 10/14/21 19:28 10/14/21 19:28 Labs/Radiology: Radiology Impressions Pelvis Ultrasound 10/14/21 19:27 IMPRESSION: 1. Somewhat limited details. Endovaginal imaging was not performed. 2. Right ovarian cyst measuring 3.9 x 4.1 x 3.5 cm. See discussion above. Interval sonographic follow-up in 6-12 weeks should be considered. 3. No obvious large solid elements, ascites or torsion. Laboratory Results WBC 10.4 10^3/uL (4.0-10.0) H 10/14/21 19:28 RBC 4.71 10^6/uL (4.1-5.3) 10/14/21 19:28 Hgb 12.8 g/dL (11.5-15.3) 10/14/21 19:28 Hct 40.2 % (37.0-47.0) 10/14/21 19:28 MCV 85.4 fl (81-99) 10/14/21 19: MCH 27.2 pg (28.0-34.0) L 10/14/21 19: MCHC 31.8 g/dL (30.0-36.0) 10/14/21: RDW 13.8 % (12.1-15.1) 10/14/21 19: Plt Count 305 10^3/cmm (130-400) 10/14/21 19: MPV 9.5 fL (7.4-10.4) 10/14/21 19: Neut % (Auto) 60.7 % 10/14/21 19: Lymph % (Auto) 27.2 % 10/14/21 19: [place] % (Auto) 8.1 % 10/14/21: Eos % (Auto) 3.1 % 10/14/21: Baso % (Auto) 0.5 % 10/14/21: Neut # (Auto) 6.31 10^3/uL (1.8-7.7) 10/14/21: Lymph # (Auto) 2.8 10^3/uL (0.8-4.8) 10/14/21: [place] # (Auto) 0.8 10^3/uL (0.2-0.9) 10/14/21: Eos # (Auto) 0.3 10^3/uL (0.0-0.8) 10/14/21: Baso # (Auto) 0.1 10^3/uL (0.0-0.1) 10/14/21: Nucleated RBC % (auto) 0 % 10/14/21: Nucleated RBCs # 0.0 /100WBC 10/14/21 19: Sodium 139 mmol/L (136-145) 10/14/21 19: Potassium 3.9 mmol/L (3.5-5.1) 10/14/21: Chloride 105 mmol/L (98-107) 10/14/21 19: Carbon Dioxide 24 mmol/L (22-29) 10/14/21 19: Anion Gap 13.9 (5-19) 10/14/21 19: BUN 15 mg/dL (6-20) 10/14/21 19: Creatinine 0.5 mg/dL (0.5-0.9) 10/14/21 19:28 GFR Calculation 154.3 mL/min (90-130) H 10/14/21 19:28 Glucose 104 mg/dL (65-115) 10/14/21 19:28 Calculated Osmolality 289 mOsm/kg (285-295) 10/14/21 19:28 Calcium 8.6 mg/dL (8.5-10.5) 10/14/21 19:28 Total Bilirubin 0.2 mg/dL (0.15-1.2) 10/14/21 19:28 AST 14 U/L (0-32) 10/14/21 19:28 ALT 17 U/L (0-33) 10/14/21 19:28 Alkaline Phosphatase 116 IU/L (35-105) H 10/14/21 19:28 Total Protein 6.9 g/dL (6.6-8.7) 10/14/21 19:28 Albumin 4.1 g/dL (3.5-5.2) 10/14/21 19: Globulin 2.8 g/dL (1.3-4.6) 10/14/21 19:28 Lipase 39 U/L (13-60) 10/14/21 19:28 HCG, Qual Negative (Negative) 10/14/21 19:28 Urine Color Yellow (Yellow) 10/14/21 19:28 Urine Appearance Clear (CLEAR) 10/14/21 19:28 Urine pH 5 (5-7) 10/14/21 19:28 Ur Specific [place] 1.025 (1.005-1.030) 10/14/21 19:28 Urine Protein Neg (Negative) 10/14/21 19:28 Urine Glucose (UA) Norm (Normal) 10/14/21 19:28 Urine Ketones Negative (Negative) 10/14/21 19:28 Urine Blood Neg (Negative) 10/14/21 19:28 Urine Nitrate Negative (Negative) 10/14/21 19:28 Urine Bilirubin Neg (Negative) 10/14/21 19:28 Urine Urobilinogen Norm mg/dL (Negative) 10/14/21 19:28 Ur Leukocyte Esterase Negative (Negative) 10/14/21 19:28 Discharge Plan Discharge Patient Disposition: Home Clinical Impression: Ovarian cyst Qualifiers: Laterality: right Qualified Code(s): N83.201 - Unspecified ovarian cyst, right side Condition: Stable Prescriptions: New naproxen 500 mg tablet,delayed release (DR/EC) 500 mg PO BID Qty: 60 0RF hydrocodone-acetaminophen 5-325 mg tablet 1 tab PO Q6H PRN (Reason: pain (scale score 7-10)) Qty: 10 0RF Discontinued tramadol [Ultram] 50 mg tablet 50 mg PO Q8H PRN (Reason: pain) Qty: 15 0RF ketorolac 10 mg tablet 10 mg PO TID PRN (Reason: pain) Qty: 10 0RF No Action sertraline [Zoloft] 100 mg tablet 100 mg PO DAILY 0RF Discharge Orders: Discharge ED (Routine); Ordered 10/14/21 Ordered By: Dylon Mireles Discharge Diet: Usual diet Discharge Activity: Increase activity as tolerated Patient Instructions: Ovarian Cyst (ED), Opioid Safety Activity Restrictions/Additional Instructions: Home and rest. Use naproxen routinely to help control pain. Use acetaminophen for further pain control. Use hydrocodone for severe pain. Drink plenty of water with medication. Follow-up with primary care for further instruction. Case management will contact you early next week with a follow-up appointment with MEDICAL ANTHROPOLOGY DIRECTOR for further evaluation and treatment. Return to ER for high fever or new concerns. Stand Alone Forms: Work/School Release Coding Level of Care Code ED Assistant Statistician for Chg Fwd Exam Comprehensive Documented by User: Howie Santos DO 10/14/21 22:28 HPI - Abdominal Pain General: Chief Complaint: Abdominal Pain Stated Complaint: abd pain Time Seen by Provider: 10/14/21 19:26 [facility] ED PFSH: Medical History (Updated 10/14/21 @ 20:23 by DENZEL Arellano) Major depressive disorder, recurrent Social History Smoking and tobacco status: never smoked Alcohol intake: never Current gender identity: Female Course Vital Signs: Vital signs: Vital Signs Temperature 97.8 F 10/14/21 19:11 Pulse Rate 86 10/14/21 19:11 Respiratory Rate 16 10/14/21 19:11 Blood Pressure 122/69 10/14/21 19:11 Pulse Oximetry 98 10/14/21 19:11 MDM - Abdominal Pain Medical Decision Making 21-year-old female comes in today with complaints of right lower pelvic pain. Patient was diagnosed with ovarian cyst last week. Patient reports today she was working and moving a lot and started having increased pain and discomfort to the right lower quadrant. Patient denies any fever nausea vomiting but occasional diarrhea. On exam abdomen soft with some right lower quadrant abdominal tenderness. No rebound tenderness. Skin is warm and dry. Vital signs are normal. Differential diagnosis includes ovarian cyst, gastroenteritis, PID. Laboratory values are unchanged from last weeks. I went ahead and ordered a ultrasound of the pelvis which noticed the ovarian cyst and good blood flow to the ovary. Reviewed exam with patient with recommendations for follow-up with MEDICAL ANTHROPOLOGY DIRECTOR for further evaluation and treatment of ovarian cyst. Patient be started on some naproxen for better pain and prostaglandin control. Plan that we will improve her pain control. Patient was also given a few hydro codone for severe pain. Patient reported understanding of care plan need for follow-up or return to the ER. This patient was originally seen by DENZEL Car.? I agree with his history, evaluation, and treatment. Lab Data : 10/14/21 19:28 10/14/21 19:28 Labs/Radiology: Radiology Impressions Pelvis Ultrasound 10/14/21 19:27 IMPRESSION: 1. Somewhat limited details. Endovaginal imaging was not performed. 2. Right ovarian cyst measuring 3.9 x 4.1 x 3.5 cm. See discussion above. Interval sonographic follow-up in 6-12 weeks should be considered. 3. No obvious large solid elements, ascites or torsion. Laboratory Results WBC 10.4 10^3/uL (4.0-10.0) H 10/14/21 19:28 RBC 4.71 10^6/uL (4.1-5.3) 10/14/21 19:28 Hgb 12.8 g/dL (11.5-15.3) 10/14/21 19:28 Hct 40.2 % (37.0-47.0) 10/14/21 19:28 MCV 85.4 fl (81-99) 10/14/21 19: MCH 27.2 pg (28.0-34.0) L 10/14/21 19: MCHC 31.8 g/dL (30.0-36.0) 10/14/21 19: RDW 13.8 % (12.1-15.1) 10/14/21: Plt Count 305 10^3/cmm (130-400) 10/14/21 19: MPV 9.5 fL (7.4-10.4) 10/14/21: Neut % (Auto) 60.7 % 10/14/21 19: Lymph % (Auto) 27.2 % 10/14/21: [place] % (Auto) 8.1 % 10/14/21 19: Eos % (Auto) 3.1 % 10/14/21: Baso % (Auto) 0.5 % 10/14/21 19: Neut # (Auto) 6.31 10^3/uL (1.8-7.7) 10/14/21: Lymph # (Auto) 2.8 10^3/uL (0.8-4.8) 10/14/21: [place] # (Auto) 0.8 10^3/uL (0.2-0.9) 10/14/21: Eos # (Auto) 0.3 10^3/uL (0.0-0.8) 10/14/21: Baso # (Auto) 0.1 10^3/uL (0.0-0.1) 10/14/21 19: Nucleated RBC % (auto) 0 % 10/14/21: Nucleated RBCs # 0.0 /100WBC 10/14/21 19: Sodium 139 mmol/L (136-145) 10/14/21 19: Potassium 3.9 mmol/L (3.5-5.1) 10/14/21 19: Chloride 105 mmol/L (98-107) 10/14/21 19: Carbon Dioxide 24 mmol/L (22-29) 10/14/21 19: Anion Gap 13.9 (5-19) 10/14/21 19: BUN 15 mg/dL (6-20) 10/14/21 19: Creatinine 0.5 mg/dL (0.5-0.9) 10/14/21 19: GFR Calculation 154.3 mL/min (90-130) H 10/14/21 19: Glucose 104 mg/dL (65-115) 10/14/21 19: Calculated Osmolality 289 mOsm/kg (285-295) 10/14/21 19: Calcium 8.6 mg/dL (8.5-10.5) 10/14/21 19: Total Bilirubin 0.2 mg/dL (0.15-1.2) 10/14/21 19: AST 14 U/L (0-32) 10/14/21 19: ALT 17 U/L (0-33) 10/14/21 19: Alkaline Phosphatase 116 IU/L (35-105) H 10/14/21 19: Total Protein 6.9 g/dL (6.6-8.7) 10/14/21 19: Albumin 4.1 g/dL (3.5-5.2) 10/14/21 19: Globulin 2.8 g/dL (1.3-4.6) 10/14/21 19: Lipase 39 U/L (13-60) 10/14/21 19:28 HCG, Qual Negative (Negative) 10/14/21 19: Urine Color Yellow (Yellow) 10/14/21 19:28 Urine Appearance Clear (CLEAR) 10/14/21 19: Urine pH 5 (5-7) 10/14/21 19: Ur Specific [place] 1.025 (1.005-1.030) 10/14/21 19:28 Urine Protein Neg (Negative) 10/14/21 19:28 Urine Glucose (UA) Norm (Normal) 10/14/21 19: Urine Ketones Negative (Negative) 10/14/21 19: Urine Blood Neg (Negative) 10/14/21 19: Urine Nitrate Negative (Negative) 10/14/21 19:28 Urine Bilirubin Neg (Negative) 10/14/21 19: Urine Urobilinogen Norm mg/dL (Negative) 10/14/21 19: Ur Leukocyte Esterase Negative (Negative) 10/14/21 19:28 Discharge Plan Discharge Patient Disposition: Home Clinical Impression: Ovarian cyst Qualifiers: Laterality: right Qualified Code(s): N83.201 - Unspecified ovarian cyst, right side Condition: Stable Prescriptions: New naproxen 500 mg tablet,delayed release (DR/EC) 500 mg PO BID Qty: 60 0RF hydrocodone-acetaminophen 5-325 mg tablet 1 tab PO Q6H PRN (Reason: pain (scale score 7-10)) Qty: 10 0RF Discontinued tramadol [Ultram] 50 mg tablet 50 mg PO Q8H PRN (Reason: pain) Qty: 15 0RF ketorolac 10 mg tablet 10 mg PO TID PRN (Reason: pain) Qty: 10 0RF No Action sertraline [Zoloft] 100 mg tablet 100 mg PO DAILY 0RF Discharge Orders: Discharge ED (Routine); Ordered 10/14/21 Ordered By: Dylon Mireles Discharge Diet: Usual diet Discharge Activity: Increase activity as tolerated Patient Instructions: Ovarian Cyst (ED), Opioid Safety Activity Restrictions/Additional Instructions: Home and rest. Use naproxen routinely to help control pain. Use acetaminophen for further pain control. Use hydrocodone for severe pain. Drink plenty of water with medication. Follow-up with primary care for further instruction. Case management will contact you early next week with a follow-up appointment with MEDICAL ANTHROPOLOGY DIRECTOR for further evaluation and treatment. Return to ER for high fever or new concerns. Stand Alone Forms: Work/School Release Coding Level of Care Code ED Assistant Statistician for Karen Fwd Exam Comprehensive
--- NOTE | 2021-10-14 19:27 | USR_ITS ---
PROCEDURE INFORMATION: Exam: US Pelvis Complete, Transabdominal and US Duplex Artery or Vein, Ovaries, Limited Exam date and time: 10/14/2021 7:40 PM Age: 21 years old Clinical indication: Pelvic pain; Additional info: Right ovarian cyst, abnormal CT, pelvic pain TECHNIQUE: Imaging protocol: Real-time transabdominal pelvic ultrasound with image documentation. Real-time duplex ultrasound scan of the arterial or venous flow of the ovaries with B-mode, color Doppler flow and spectral waveform analysis. Complete Pelvis, Limited Duplex. COMPARISON: CT abdomen pelvis w con* [id number] 10/08/2021 9:43 PM FINDINGS: Uterus: Anteverted uterus measuring 11.5 x 3.8 by 3.4 cm. Suboptimally visualized endometrium measuring about 7-8 mm in thickness. No obvious large endometrial mass or fluid/debris. No large uterine myoma or obvious sonographic signs of adenomyosis are present. Cervix: The cervix is poorly visualized. Vagina: No obvious solid nodular elements. The mural characteristics are suboptimally assessed without endovaginal imaging. Right ovary/adnexa: Right ovary measures 3.9 x 3.3 by 5 cm. There is a right unilocular ovarian cyst measuring 3.5 x 3.9 by 4.1 cm. There are possible low level internal echoes. Considerations include ovarian cyst which may be enlarged physiologic follicle versus benign cystic neoplasm versus endometrioma. There is flow within both ovarian parenchyma demonstrating normal spectral waveforms. No obvious ovarian stromal edema on either side. Left ovary/adnexa: Left ovary measures 1.5 x 3.5 x 3.5 cm. Intraperitoneal space: Multiple transabdominal pelvic ultrasound images were obtained. Details are somewhat limited due to lack of endovaginal imaging. Duplex imaging was also performed due to pain and to exclude torsion. No significant free pelvic fluid. Urinary bladder: Urinary bladder is suboptimally assessed due to nondistention. US/US pelvic complete* [id number] IMPRESSION: 1. Somewhat limited details. Endovaginal imaging was not performed. 2. Right ovarian cyst measuring 3.9 x 4.1 x 3.5 cm. See discussion above. Interval sonographic follow-up in 6-12 weeks should be considered. 3. No obvious large solid elements, ascites or torsion.
[2021-10-14 19:36] LABS: Basophils # 0.1 10^3/uL (0.0-0.1); Basophils % 0.5 %; Eosinophils # 0.3 10^3/uL (0.0-0.8); Eosinophils % 3.1 %; Hematocrit 40.2 % (37.0-47.0); Hemoglobin 12.8 g/dL (11.5-15.3); Lymphocytes # 2.8 10^3/uL (0.8-4.8); Lymphocytes % 27.2 %; Mean Corpuscular HGB Conc 31.8 g/dL (30.0-36.0); Mean Corpuscular Hemoglobin 27.2 pg (28.0-34.0); Mean Corpuscular Volume 85.4 fl (81-99); Mean Platelet Volume 9.5 fL (7.4-10.4); Monocytes # 0.8 10^3/uL (0.2-0.9); Monocytes % 8.1 %; Neutrophils # 6.31 10^3/uL (1.8-7.7); Neutrophils % 60.7 %; Nucleated Red Blood Cells % 0 %; Platelet Count 305 10^3/cmm (130-400); Red Blood Count 4.71 10^6/uL (4.1-5.3); Red Cell Distribution Width 13.8 % (12.1-15.1); White Blood Count 10.4 10^3/uL (4.0-10.0)
[2021-10-14 19:44] LABS: HCG Qualitative Urine. Negative (Negative)
[2021-10-14 19:48] LABS: Add Urine Microscopic? NO; Charge for UA Resulting for Rev
[2021-10-14 19:50] LABS: Bilirubin Urine Neg (Negative); Blood Urine Neg (Negative); Glucose Urine UA Norm (Normal); Ketones Urine Negative (Negative); Leukocyte Esterase Urine Negative (Negative); Nitrate Urine Negative (Negative); Protein Urine Neg (Negative); Specific Gravity, Urine 1.025 (1.005-1.030); Urine Appearance Clear (CLEAR); Urine Color Yellow (Yellow); Urobilinogen Urine Norm (Negative); pH Urine 5 (5-7)
[2021-10-14 19:51] LABS: Alanine Aminotransferase 17 U/L (0-33); Albumin Level 4.1 g/dL (3.5-5.2); Alkaline Phosphatase 116 IU/L (35-105); Anion Gap 13.9 (5-19); Aspartate Amino Transferase 14 U/L (0-32); Blood Urea Nitrogen 15 mg/dL (6-20); Calcium 8.6 mg/dL (8.5-10.5); Carbon Dioxide 24 mmol/L (22-29); Chloride 105 mmol/L (98-107); Globulin 2.8 g/dL (1.3-4.6); Glomerular Filtration Rate 154.3 mL/min (90-130); Glucose 104 mg/dL (65-115); Lipase 39 U/L (13-60); Osmolality Calculated 289 mOsm/kg (285-295); Potassium 3.9 mmol/L (3.5-5.1); Sodium 139 mmol/L (136-145); Total Bilirubin 0.2 mg/dL (0.15-1.2); Total Protein 6.9 g/dL (6.6-8.7)
[2021-10-14] MEDS: sodium chloride 0.9% 1,000 ML 999 ML IV (19:55)
[2021-10-14] MEDS: ketorolac 30 mg/mL INJ 15 MG IVP (19:55)
--- NOTE | 2021-10-18 13:57 | DCPLANNER ---
Addendum entered by Amrita Marrufo 10/27/21 19:34: district claims manager was notified by [facility] that patient has no showed 2 prior appointments at the clinic. Provider will have to call [facility] and speak with provider at the clinic to schedule patient at the clinic again. district claims manager tried to contact patient and explain this to patient, unable to speak with patient at this time, and unable to leave a voicemail for patient. Original Note: district claims manager had message to schedule a follow up appointment for patient with [facility]. district claims manager sent patients information to the front office staff at [facility]. Patients information will be printed and reviewed. Clinic will call patient with appointment information.
== END 2021-10-14 20:41 | disposition home or self-care (01) ==
PROVIDERS: Emergency Medicine; Emergency Provider Nurse Practitioner Family
DX: N83.201 Unspecified ovarian cyst, right side (principal)
CPT/HCPCS: 76856; 80053; 81003; 81025; 83690; 85025; 96361; 96374; 99284; J1885; J7030

== ENCOUNTER → 2022-03-03 08:50 | Outpatient (BNVA) | payer BC, MEDICAID, SELFPAY | PROVIDERS: Visit Provider Obstetrics & Gynecology | DX: Z01.419 Encounter for gynecological examination (general) (routine) without abnormal findings (principal) | CPT/HCPCS: 88175 ==

== ENCOUNTER → 2022-03-14 12:24 | Outpatient (BNVA) | payer BC, MEDICAID, SELFPAY | PROVIDERS: Visit Provider Obstetrics & Gynecology | DX: N83.201 Unspecified ovarian cyst, right side (principal) | CPT/HCPCS: 76830 ==